=== PATIENT | male | born 1960 | race Caucasian/White ===

== ENCOUNTER → 2020-02-27 10:20 | Outpatient (CLI) | payer OTHER, SELFPAY ==
--- NOTE | 2020-02-27 10:48 | ECG_ITS ---
APPROVED REPORT Exam: Resting ECG HR:89 bpm ECG Measurements Heart Rate 89 AXES MN 172 P 41 QRSd 102 QRS 3 QT 378 T 64 QTc 459 Conclusion Normal sinus rhythm Left atrial abnormality Borderline ECG Electronically signed by : Tyler Nettles, 02/27/2020 21:07:02
[2020-02-27 11:21] LABS: Basophils # 0.1 K/mm3 (0-0.2); Basophils % 0.7 % (0.1-2.0); Eosinophils # 0.2 K/mm3 (0.0-0.4); Eosinophils % 2.6 % (0.1-12.0); Hematocrit 55.2 % (42.0-52.0); Lymphocytes # 2.2 K/mm3 (0.7-4.5); Lymphocytes % 26.8 % (10-50); Mean Corpuscular HGB Conc 32.7 g/dL (31.8-35.4); Mean Corpuscular Hemoglobin 30.9 pg (27.0-31.2); Mean Corpuscular Volume 94.4 fl (80-94); Mean Platelet Volume 8.5 fl (7.4-10.4); Monocytes # 0.9 K/mm3 (0.1-1.0); Monocytes % 10.7 % (1.7-9.3); Neutrophils # 4.8 K/mm3 (1.8-7.8); Neutrophils % 59.3 % (37.0-80.0); Platelet Count 318 K/mm3 (142-424); Red Blood Count 5.85 M/mm3 (4.60-6.20); White Blood Count 8.2 K/mm3 (4.8-10.8)
[2020-02-27 11:29] LABS: Hemoglobin 18.3 g/dL (14.1-18.0)
[2020-02-27 11:48] LABS: Alanine Aminotransferase 55 U/L (12-78); Albumin Level 4.6 g/dl (3.5-5.0); Albumin/Globulin Ratio 1.4 (1.1-1.8); Alkaline Phosphatase 92 U/L (38-126); Anion Gap 15.1 mEq/L (5-15); Aspartate Amino Transferase 48 U/L (17-59); Bilirubin,Total 0.7 mg/dl (0.2-1.3); Blood Urea Nitrogen 16 mg/dl (9-20); Calcium 9.6 mg/dl (8.4-10.2); Carbon Dioxide 28 mmol/L (22.0-30.0); Chloride 101 mmol/L (98-107); Estimated Glomerular Filt Rate 86 ml/min (>60); GFR (African American) 105 ML/MIN (>60); Globulin 3.4 g/dL (1.3-3.2); Glucose 132 mg/dl (74-100); Potassium 5.1 mmoL/L (3.5-5.1); Sodium 139 mmol/L (136-145)
== END ==
PROVIDERS: Visit Provider Orthopaedic Surgery
DX: Z01.818 Encounter for other preprocedural examination (principal); M25.512 Pain in left shoulder
CPT/HCPCS: 36415; 80053; 85025; 93005

== ENCOUNTER → 2020-04-18 14:32 | Outpatient (CLI) | payer OTHER, SELFPAY ==
[2020-04-18 14:48] LABS: Basophils # 0.1 K/mm3 (0-0.2); Basophils % 0.9 % (0.1-2.0); Eosinophils # 0.5 K/mm3 (0.0-0.4); Eosinophils % 5.4 % (0.1-12.0); Hematocrit 51.5 % (42.0-52.0); Hemoglobin 17.8 g/dL (14.1-18.0); Lymphocytes # 1.8 K/mm3 (0.7-4.5); Lymphocytes % 21.1 % (10-50); Mean Corpuscular HGB Conc 34.5 g/dL (31.8-35.4); Mean Corpuscular Hemoglobin 30.9 pg (27.0-31.2); Mean Corpuscular Volume 89.7 fl (80-94); Mean Platelet Volume 8.2 fl (7.4-10.4); Monocytes # 0.7 K/mm3 (0.1-1.0); Monocytes % 7.7 % (1.7-9.3); Neutrophils # 5.6 K/mm3 (1.8-7.8); Platelet Count 324 K/mm3 (142-424); Red Blood Count 5.74 M/mm3 (4.60-6.20); White Blood Count 8.6 K/mm3 (4.8-10.8)
[2020-04-18 15:46] LABS: Alanine Aminotransferase 75 U/L (12-78); Albumin Level 4.6 g/dl (3.5-5.0); Albumin/Globulin Ratio 1.4 (1.1-1.8); Alkaline Phosphatase 107 U/L (38-126); Anion Gap 14.1 mEq/L (5-15); Aspartate Amino Transferase 72 U/L (17-59); Bilirubin,Total 0.6 mg/dl (0.2-1.3); Blood Urea Nitrogen 14 mg/dl (9-20); Calcium 9.7 mg/dl (8.4-10.2); Carbon Dioxide 30 mmol/L (22.0-30.0); Chloride 97 mmol/L (98-107); Estimated Glomerular Filt Rate 86 ml/min (>60); GFR (African American) 105 ML/MIN (>60); Globulin 3.4 g/dL (1.3-3.2); Glucose 170 mg/dl (74-100); Potassium 5.1 mmoL/L (3.5-5.1); Sodium 136 mmol/L (136-145)
== END ==
PROVIDERS: Visit Provider Orthopaedic Surgery
DX: Z01.818 Encounter for other preprocedural examination (principal)
CPT/HCPCS: 36415; 80053; 85025

== ENCOUNTER 2020-12-03 14:00 | Outpatient (RCR) | payer OTHER, SELFPAY | END 2020-12-19 12:46 | disposition home or self-care (01) | LOC: PT.CARL 14:00 | PROVIDERS: Visit Provider Orthopaedic Surgery | DX: M75.102 Unspecified rotator cuff tear or rupture of left shoulder, not specified as traumatic (principal) | CPT/HCPCS: 97010; 97014; 97110; 97140; 97163; 97164; G0283 ==

== ENCOUNTER → 2021-10-09 13:24 | Outpatient (CLI) | payer SELFPAY | PROVIDERS: PCP Internal Medicine; Visit Provider Internal Medicine | DX: U07.1 COVID-19 (principal) | CPT/HCPCS: C9803; U0003; U0005 ==

== ENCOUNTER → 2021-11-12 16:50 | Outpatient (CLI) | payer OTHER, SELFPAY ==
[2021-11-12 18:13] LABS: Basophils # 0.1 K/mm3 (0-0.2); Basophils % 1.1 % (0.1-2.0); Eosinophils # 0.3 K/mm3 (0.0-0.4); Eosinophils % 3.5 % (0.1-12.0); Hematocrit 54.6 % (42.0-52.0); Hemoglobin 17.9 g/dL (14.1-18.0); Lymphocytes # 1.8 K/mm3 (0.7-4.5); Lymphocytes % 24.4 % (10-50); Mean Corpuscular HGB Conc 32.7 g/dL (31.8-35.4); Mean Corpuscular Hemoglobin 31.8 pg (27.0-31.2); Mean Corpuscular Volume 97.3 fl (80-94); Mean Platelet Volume 10.1 fl (7.4-10.4); Monocytes # 0.7 K/mm3 (0.1-1.0); Monocytes % 9.5 % (1.7-9.3); Neutrophils # 4.6 K/mm3 (1.8-7.8); Neutrophils % 61.5 % (37.0-80.0); Platelet Count 350 K/mm3 (142-424); Red Blood Count 5.61 M/mm3 (4.60-6.20); Red Cell Distribution Width 12.7 % (11.5-17.5); White Blood Count 7.5 K/mm3 (4.8-10.8)
[2021-11-12 18:30] LABS: Hemoglobin A1C 7.9 % (4.0-6.0)
[2021-11-12 19:00] LABS: Alanine Aminotransferase 49 U/L (12-78); Albumin Level 4.4 g/dl (3.5-5.0); Albumin/Globulin Ratio 1.2 (1.1-1.8); Alkaline Phosphatase 161 U/L (38-126); Anion Gap 15.8 mEq/L (5-15); Aspartate Amino Transferase 58 U/L (17-59); Bilirubin,Total 0.6 mg/dl (0.2-1.3); Blood Urea Nitrogen 16 mg/dl (9-20); Calcium 9.2 mg/dl (8.4-10.2); Carbon Dioxide 26 mmol/L (22.0-30.0); Chloride 99 mmol/L (98-107); Chol/HDL Ratio 8.1 (1-3.5); Cholesterol 317 mg/dl (140-200); Estimated Glomerular Filt Rate 98 ml/min (>60); GFR (African American) 119 ML/MIN (>60); Globulin 3.6 g/dL (1.3-3.2); Glucose 165 mg/dl (74-100); HDL Cholesterol 39 mg/dl (40-60); Potassium 4.8 mmoL/L (3.5-5.1); Sodium 136 mmol/L (136-145); Triglycerides 387 mg/dl (30-150); VLDL Cholesterol 77 mg/dL (0-40)
[2021-11-12 19:11] LABS: Direct LDL Cholesterol 166.48 mg/dL (100-129)
[2021-11-12 19:30] LABS: Prostate Specific Ag Screen 0.7 ng/ml (0.0-4.0)
== END ==
PROVIDERS: PCP Internal Medicine; Visit Provider Internal Medicine
DX: E11.9 Type 2 diabetes mellitus without complications (principal); I10 Essential (primary) hypertension; E78.5 Hyperlipidemia, unspecified; K57.30 Diverticulosis of large intestine without perforation or abscess without bleeding; Z12.5 Encounter for screening for malignant neoplasm of prostate
CPT/HCPCS: 80053; 80061; 83036; 85025; G0103

== ENCOUNTER → 2022-05-19 12:09 | Outpatient (CLI) | payer OTHER, SELFPAY ==
[2022-05-19 13:39] LABS: Alanine Aminotransferase 65 U/L (12-78); Albumin Level 4.5 g/dl (3.5-5.0); Albumin/Globulin Ratio 1.4 (1.1-1.8); Alkaline Phosphatase 77 U/L (38-126); Anion Gap 13.8 mEq/L (5-15); Aspartate Amino Transferase 45 U/L (17-59); Bilirubin,Total 0.5 mg/dl (0.2-1.3); Blood Urea Nitrogen 16 mg/dl (9-20); Calcium 8.8 mg/dl (8.4-10.2); Carbon Dioxide 27 mmol/L (22.0-30.0); Chloride 100 mmol/L (98-107); Chol/HDL Ratio 8.6 (1-3.5); Cholesterol 308 mg/dl (140-200); Estimated Glomerular Filt Rate 98 ml/min (>60); GFR (African American) 119 ML/MIN (>60); Globulin 3.2 g/dL (1.3-3.2); Glucose 135 mg/dl (74-100); HDL Cholesterol 36 mg/dl (40-60); Potassium 4.8 mmoL/L (3.5-5.1); Sodium 136 mmol/L (136-145); Total Protein,Serum 7.7 g/dl (6.3-8.2)
[2022-05-19 13:42] LABS: Hemoglobin A1C 7.8 % (4.0-6.0)
[2022-05-19 13:47] LABS: Triglycerides 580 mg/dl (30-150)
[2022-05-19 14:58] LABS: Microalbumin/Creatinine Ratio 39.2
[2022-05-19 15:12] LABS: Creatinine,Urine Random 69 mg/dL (Not Estab.)
== END ==
PROVIDERS: PCP Internal Medicine; Visit Provider Internal Medicine
DX: I10 Essential (primary) hypertension (principal); E11.9 Type 2 diabetes mellitus without complications; E78.5 Hyperlipidemia, unspecified; K57.30 Diverticulosis of large intestine without perforation or abscess without bleeding
CPT/HCPCS: 80053; 80061; 82043; 82570; 83036

== ENCOUNTER → 2022-07-02 16:25 | Outpatient (CLI) | payer OTHER, SELFPAY | PROVIDERS: PCP Internal Medicine; Visit Provider Internal Medicine | DX: J02.9 Acute pharyngitis, unspecified (principal) | CPT/HCPCS: 87070 ==

== ENCOUNTER → 2022-07-03 13:06 | Outpatient (CLI) | payer OTHER, SELFPAY ==
--- NOTE | 2022-07-03 13:29 | XR_ITS ---
FINAL REPORT CLINICAL HISTORY: HIP PAIN right hip pain FINDINGS: RIGHT HIP Two views of the right hip demonstrate no acute fracture or dislocation. The joint spaces appear normal. The visualized bony structures are well aligned. No soft tissue abnormality is seen. IMPRESSION: No acute bony abnormality. Reviewed, Interpreted and Dictated by Yariel Mireles MD Transcribed by Bettina Greenberg Authenticated and [facility]
--- NOTE | 2022-07-03 13:29 | XR_ITS ---
FINAL REPORT CLINICAL HISTORY: left hip pain FINDINGS: LEFT HIP Two views of the left hip including an AP pelvis demonstrate no acute fracture or dislocation. The joint spaces appear normal. The visualized bony structures are well aligned. No soft tissue abnormality is seen. IMPRESSION: No acute bony abnormality. Reviewed, Interpreted and Dictated by Yariel Mireles MD Transcribed by Bettina Greenberg Authenticated and [facility]
== END ==
PROVIDERS: PCP Internal Medicine; Visit Provider Internal Medicine
DX: M25.551 Pain in right hip (principal); M25.552 Pain in left hip
CPT/HCPCS: 73502

== ENCOUNTER → 2022-07-09 12:33 | Outpatient (CLI) | payer OTHER, SELFPAY ==
--- NOTE | 2022-07-09 12:52 | US_ITS ---
FINAL REPORT CLINICAL HISTORY: HTN, Hyperlipidemia, bilateral hip pain and burning, bilateral claudication. FINDINGS: COMPLETE ANKLE/BRACHIAL INDICES BILATERAL Complete ankle brachial indices were obtained. The right AMARIS is 1.2. The left AMARIS is 1.1. IMPRESSION: ABIs are within normal limits bilaterally. Reviewed, Interpreted and Dictated by Audrey Weldon MD Transcribed by Ilene Colindres Authenticated and [facility]
== END ==
PROVIDERS: PCP Internal Medicine; Visit Provider Internal Medicine
DX: M25.551 Pain in right hip (principal); M25.552 Pain in left hip; M79.604 Pain in right leg; M79.605 Pain in left leg
CPT/HCPCS: 93923

== ENCOUNTER → 2022-07-15 15:07 | Outpatient (CLI) | payer OTHER, SELFPAY ==
--- NOTE | 2022-07-15 15:15 | XR_ITS ---
FINAL REPORT CLINICAL HISTORY: R/O METAL FOREIGN BODY FOR MRI FINDINGS: ORBITS Look up and look down views were obtained. No fracture is identified. The sinuses are clear. No foreign body is identified. IMPRESSION: No acute process. Reviewed, Interpreted and Dictated by Yariel Mireles MD Transcribed by Russ Garrido Authenticated and [facility]
--- NOTE | 2022-07-15 15:46 | MR_ITS ---
PROCEDURE INFORMATION: Exam: MR Lumbar Spine Without Contrast Exam date and time: 07/15/2022 3:48 PM Age: 61 years old Clinical indication: Low back pain TECHNIQUE: Imaging protocol: Magnetic resonance imaging of the lumbar spine without contrast. COMPARISON: CR XR HIP LT 2-3V W/PELVIS 07/03/2022 1:31 PM FINDINGS: Bones/joints: L5-S1 bilateral spondylolysis with 5 mm of anterolisthesis is present. There is a small interosseous hemangioma present in the L1 vertebrae inferiorly and the superior endplate of L2. There is no acute displaced fracture seen. Disc space height loss with vacuum cleft L5-S1. Schmorl's nodes are seen in T12-L3 with mild chronic appearing loss of height. Spinal cord: Visualized cord, conus medullaris and cauda equina are unremarkable without compression. L1-L2: L1-L2 subtle saddle shaped disc bulging is present without stenosis. L2-L3: L2-L3 subtle saddle shaped disc bulging is seen without stenosis. L3-L4: L3-L4 minimal diffuse disc bulging with degenerative hypertrophy of the facets is seen with mild narrowing of the spinal canal and moderate narrowing of both neural foramen. L4-L5: L4-L5 minimal bilateral facet arthritis is seen without stenosis. L5-S1: L5-S1 diffuse disc bulging is seen slightly eccentric to the left. There is no stenosis of the spinal canal. There is degenerative hypertrophy of the facets on both sides with moderate right and severe left neural foraminal narrowing. There is also a small left facet effusion present. Soft tissues: Unremarkable. IMPRESSION: Multilevel degenerative disc disease with mild spinal canal stenosis L3-L4 as described. There is also severe left L5-S1 neural foraminal stenosis present.
== END ==
PROVIDERS: PCP Internal Medicine; Visit Provider Internal Medicine
DX: M54.2 Cervicalgia (principal); M54.50 Low back pain, unspecified; M79.604 Pain in right leg; M79.605 Pain in left leg
CPT/HCPCS: 70200; 72148; 76376

== ENCOUNTER → 2022-08-18 12:30 | Outpatient (CLI) | payer OTHER, SELFPAY ==
[2022-08-18 15:26] LABS: Hemoglobin A1C 6.4 % (4.0-6.0)
[2022-08-18 15:28] LABS: Creatinine,Urine Random 78 mg/dL (Not Estab.)
[2022-08-18 15:33] LABS: Microalbumin/Creatinine Ratio 61.5
[2022-08-18 15:44] LABS: Alanine Aminotransferase 56 U/L (12-78); Albumin Level 4.5 g/dl (3.5-5.0); Albumin/Globulin Ratio 1.5 (1.1-1.8); Alkaline Phosphatase 92 U/L (38-126); Anion Gap 21.6 mEq/L (5-15); Aspartate Amino Transferase 47 U/L (17-59); Bilirubin,Total 0.5 mg/dl (0.2-1.3); Blood Urea Nitrogen 25 mg/dl (9-20); Carbon Dioxide 25 mmol/L (22.0-30.0); Chloride 93 mmol/L (98-107); Chol/HDL Ratio 7.4 (1-3.5); Cholesterol 229 mg/dl (140-200); Estimated Glomerular Filt Rate 86 ml/min (>60); GFR (African American) 104 ML/MIN (>60); Globulin 3.1 g/dL (1.3-3.2); Glucose 112 mg/dl (74-100); HDL Cholesterol 31 mg/dl (40-60); Potassium 4.6 mmoL/L (3.5-5.1); Sodium 135 mmol/L (136-145); Total Protein,Serum 7.6 g/dl (6.3-8.2)
[2022-08-18 15:53] LABS: Triglycerides 760 mg/dl (30-150)
[2022-08-18 15:55] LABS: Direct LDL Cholesterol 83.18 mg/dL (100-129)
== END ==
PROVIDERS: PCP Internal Medicine; Visit Provider Internal Medicine
DX: E11.9 Type 2 diabetes mellitus without complications (principal); E78.5 Hyperlipidemia, unspecified; I10 Essential (primary) hypertension; K57.30 Diverticulosis of large intestine without perforation or abscess without bleeding
CPT/HCPCS: 80053; 80061; 82043; 82570; 83036

== ENCOUNTER → 2022-09-05 09:01 | Outpatient (POV) | payer OTHER, SELFPAY ==
[2022-09-05 09:41] VITALS: BP 148/89; PULSE 94; RESP 18; O2SAT 97; BMI 35.1
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
== END ==
PROVIDERS: PCP Internal Medicine; Visit Provider Nurse Anesthetist, Certified Registered
DX: M51.16 Intervertebral disc disorders with radiculopathy, lumbar region (principal); M47.26 Other spondylosis with radiculopathy, lumbar region; Z79.899 Other long term (current) drug therapy
CPT/HCPCS: 99202; G0463

== ENCOUNTER → 2022-09-15 14:02 | Outpatient (CLI) | payer OTHER, SELFPAY ==
--- NOTE | 2022-09-15 14:09 | CT_ITS ---
FINAL REPORT TECHNIQUE: Axial imaging of the head was obtained without contrast. This study was performed with techniques to keep radiation doses as low as reasonably achievable, (ALARA). Individualized dose reduction techniques using automated exposure control or adjustment of mA and/or kV according to the patient''s size were employed. CLINICAL HISTORY: HEADACHES,VERTIGO,DIZZINESS FINDINGS: The ventricles are normal in size. There is no evidence of hemorrhage. No masses are identified. No extra-axial fluid is seen. There is mucoperiosteal thickening of the bilateral maxillary sinuses. Air-fluid level is seen in the sphenoid sinus. There is no acute osseous abnormality. IMPRESSION: No acute intracranial abnormality. Sinusitis as above. Reviewed, Interpreted and Dictated by Audrey Weldon MD Transcribed by Jocelyn Herrmann Authenticated and [facility]
== END ==
PROVIDERS: PCP Internal Medicine; Visit Provider Internal Medicine
DX: R51.9 Headache, unspecified (principal); R55 Syncope and collapse; R42 Dizziness and giddiness
CPT/HCPCS: 70450

== ENCOUNTER → 2022-09-29 10:21 | Outpatient (POV) | payer OTHER, SELFPAY ==
--- NOTE | 2022-09-29 10:58 | EXP.PAIN.SOA ---
[facility] Pain Management SOAP Note Subjective:: Patient is a pleasant 62-year-old male who presents today for follow-up. We are currently treating the patient for degenerative disc disease of lumbar spine with lumbar radiculopathy symptoms. Today he states his pain is a 1 out of 10. Patient denies any new trauma or injury. Patient was scheduled for a lumbar epidural steroid injection however he is currently on blood thinner and that his primary care doctor who is prescribing this medication states that he is at least going to be on this medication for 3 months. Patient states he did recently have right shoulder surgery on August 20 and fairly shortly after that he had a blood clot and was prescribed the blood thinner. Patient denies any specific cardiac history prior or previous blood clots. He does state his pain is still in his low back and describes it as an aching, throbbing sensation that is worse with increased activity. Patient states that with prolonged walking and standing the pain is worsened and interferes with his ability to perform activities of daily living such as cooking and cleaning. Patient states he frequently cannot go to the grocery store without having to take multiple breaks due to the worsening pain. Patient also states that he typically has to lean over at the shopping cart or even lean while doing the dishes to have some additional improvement. Patient is not on any scheduled medications. His Howard is [phone]. Its been reviewed and appropriate. Review of Systems: General: No recent weight changes, no fever, no sleep disturbances Respiratory: No cough, no shortness of air, no recurring pulmonary infections Cardiovascular/peripheral vascular: No chest pain, no palpitations, no edema, no shortness of breath Gastrointestinal: No new onset incontinence, normal bowel movements reported Genitourinary: No new onset incontinence Musculoskeletal: Low back pain Psychiatric: [Normal mood/affect] Neurological: [Denies weakness in extremities], [denies balance issues] Objective:: Physical Exam: General: Alert and oriented x3, no acute distress, pleasant and cooperative Lungs: Respirations even and unlabored, symmetrical chest expansion Eyes: PERRL Musculoskeletal: Flexion and extension of lumbar [spine] somewhat guarded secondary to pain, [antalgic gait noted] Neurological: Speech clear, no gross sensory deficit COMPARISON: CR XR HIP LT 2-3V W/PELVIS 07/03/2022 1:31 PM FINDINGS: Bones/joints: L5-S1 bilateral spondylolysis with 5 mm of anterolisthesis is present. There is a small interosseous hemangioma present in the L1 vertebrae inferiorly and the superior endplate of L2. There is no acute displaced fracture seen. Disc space height loss with vacuum cleft L5-S1. Schmorl's nodes are seen in T12-L3 with mild chronic appearing loss of height. Spinal cord: Visualized cord, conus medullaris and cauda equina are unremarkable without compression. L1-L2: L1-L2 subtle saddle shaped disc bulging is present without stenosis. L2-L3: L2-L3 subtle saddle shaped disc bulging is seen without stenosis. L3-L4: L3-L4 minimal diffuse disc bulging with degenerative hypertrophy of the facets is seen with mild narrowing of the spinal canal and moderate narrowing of both neural foramen. L4-L5: L4-L5 minimal bilateral facet arthritis is seen without stenosis. L5-S1: L5-S1 diffuse disc bulging is seen slightly eccentric to the left. There is no stenosis of the spinal canal. There is degenerative hypertrophy of the facets on both sides with moderate right and severe left neural foraminal narrowing. There is also a small left facet effusion present. Soft tissues: Unremarkable. IMPRESSION: Multilevel degenerative disc disease with mild spinal canal stenosis L3-L4 as described. There is also severe left L5-S1 neural foraminal stenosis present. Assessment:: Degenerative disc disease of sheryl
[2022-09-29 11:07] VITALS: BP 147/86; PULSE 90; RESP 18; BMI 35.7
== END ==
PROVIDERS: PCP Internal Medicine; Visit Provider Nurse Practitioner Family
DX: M51.16 Intervertebral disc disorders with radiculopathy, lumbar region (principal); M48.00 Spinal stenosis, site unspecified
CPT/HCPCS: 99212; G0463

== ENCOUNTER 2022-11-01 18:54 | Emergency (ER) | payer OTHER, SELFPAY ==
[2022-11-01 18:56] VITALS: BP 158/82; PULSE 100; RESP 18; TEMP 36.7; O2SAT 95; BMI 35.1
--- NOTE | 2022-11-01 19:26 | XR_ITS ---
PROCEDURE INFORMATION: Exam: XR Left Hand Exam date and time: 11/01/2022 7:22 PM Age: 62 years old Clinical indication: Pain; Finger(s); Left; Additional info: Pain mcp middle and ring finger TECHNIQUE: Imaging protocol: Radiologic exam of the left hand. Views: 3 or more views. COMPARISON: No relevant prior studies available. FINDINGS: Bones/joints: No acute fracture or dislocation. Mild arthritic changes scattered throughout the hand, involving the 1st MCP joint with minimal periarticular spurs, 4th MCP joint with minimal subcortical cystic changes in the 4th metacarpal head, IP joint of the thumb with small periarticular spurs, 2nd and 3rd PIP joints, 2nd through 5th D IP joints with some periarticular spurs, subcortical cystic changes or small marginal erosions. Alignment appears normal. Soft tissues: Soft tissue swelling. No radiopaque foreign bodies. No pathologic soft tissue calcification. IMPRESSION: 1. No acute fracture or dislocation. 2. Scattered mild arthritic changes through the digits as detailed above, with some small periarticular spurs, tiny subcortical cystic changes or erosions. This may be degenerative osteoarthritis but other erosive arthropathies would also be considered.
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
[2022-11-01 20:00] VITALS: BP 151/72; PULSE 89; RESP 18; TEMP 36.7; O2SAT 95
== END 2022-11-01 20:01 | disposition home or self-care (01) ==
PROVIDERS: Emergency Provider Emergency Medicine; PCP Internal Medicine
DX: I10 Essential (primary) hypertension (principal); S69.92XA Unspecified injury of left wrist, hand and finger(s), initial encounter; E78.5 Hyperlipidemia, unspecified
CPT/HCPCS: 73130; 99283

== ENCOUNTER → 2022-12-17 15:38 | Outpatient (CLI) | payer OTHER, SELFPAY ==
[2022-12-17 15:49] LABS: MANUAL DIFFERENTIAL MANUAL DIFFERENTIAL (MANUAL DIFF)
[2022-12-17 17:40] LABS: Basophils % 0.4 % (0.1-2.0); Eosinophils # 0.7 K/mm3 (0.0-0.4); Eosinophils % 7.8 % (0.1-12.0); Hematocrit 47.9 % (42.0-52.0); Hemoglobin 16.3 g/dL (14.1-18.0); Lymphocytes # 2.1 K/mm3 (0.7-4.5); Lymphocytes % 23.5 % (10-50); Mean Corpuscular Hemoglobin 31.3 pg (27.0-31.2); Mean Platelet Volume 9.1 fl (7.4-10.4); Monocytes % 11.4 % (1.7-9.3); Neutrophils % 56.8 % (37.0-80.0); Platelet Count 384 K/mm3 (142-424); Red Blood Count 5.21 M/mm3 (4.60-6.20); Red Cell Distribution Width 13.6 % (11.5-17.5); White Blood Count 8.8 K/mm3 (4.8-10.8)
[2022-12-17 19:17] LABS: Vitamin B12 471 pg/mL (239-931)
[2022-12-17 19:35] LABS: Folate > 20.00 ng/mL
[2022-12-17 21:01] LABS: Eosinophils % 3 % (0-3); Lymphocytes % 29 % (10-50); Monocytes % 4 % (2-9); Neutrophils % 64 % (42-76); RBC Morphology Normal; Total Cells Counted 100
[2022-12-17 21:02] LABS: Platelet Estimate Normal
== END ==
PROVIDERS: PCP Internal Medicine; Visit Provider Specialist
DX: R42 Dizziness and giddiness (principal); D75.1 Secondary polycythemia; J32.0 Chronic maxillary sinusitis; J32.3 Chronic sphenoidal sinusitis; I26.99 Other pulmonary embolism without acute cor pulmonale
CPT/HCPCS: 36415; 82607; 82746; 84443; 85007; 85014; 85018; 85048; 85049

== ENCOUNTER → 2022-12-30 10:08 | Outpatient (CLI) | payer OTHER, SELFPAY ==
[2022-12-30 10:18] LABS: MANUAL DIFFERENTIAL MANUAL DIFFERENTIAL (MANUAL DIFF)
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
[2022-12-30 10:39] LABS: Basophils # 0.1 K/mm3 (0-0.2); Basophils % 0.9 % (0.1-2.0); Eosinophils # 0.8 K/mm3 (0.0-0.4); Eosinophils % 10.9 % (0.1-12.0); Hemoglobin 16.1 g/dL (14.1-18.0); Lymphocytes # 1.7 K/mm3 (0.7-4.5); Lymphocytes % 23.5 % (10-50); Mean Corpuscular HGB Conc 32.8 g/dL (31.8-35.4); Mean Corpuscular Hemoglobin 30.5 pg (27.0-31.2); Mean Corpuscular Volume 93.1 fl (80-94); Mean Platelet Volume 8.2 fl (7.4-10.4); Monocytes # 0.7 K/mm3 (0.1-1.0); Monocytes % 9.4 % (1.7-9.3); Neutrophils # 3.9 K/mm3 (1.8-7.8); Neutrophils % 55.3 % (37.0-80.0); Platelet Count 343 K/mm3 (142-424); Red Blood Count 5.27 M/mm3 (4.60-6.20); Red Cell Distribution Width 13.9 % (11.5-17.5); White Blood Count 7.1 K/mm3 (4.8-10.8)
[2022-12-30 10:57] LABS: Chloride 99 mmol/L (98-107); Potassium 4.7 mmoL/L (3.5-5.1); Sodium 134 mmol/L (136-145)
[2022-12-30 11:08] LABS: Alanine Aminotransferase 44 U/L (12-78); Albumin/Globulin Ratio 1.3 (1.1-1.8); Alkaline Phosphatase 100 U/L (38-126); Anion Gap 15.7 mEq/L (5-15); Aspartate Amino Transferase 37 U/L (17-59); Bilirubin,Total 0.4 mg/dl (0.2-1.3); Blood Urea Nitrogen 18 mg/dl (9-20); Calcium 8.9 mg/dl (8.4-10.2); Carbon Dioxide 24 mmol/L (22.0-30.0); Estimated Glomerular Filt Rate 86 ml/min (>60); GFR (African American) 103 ML/MIN (>60); Globulin 3.2 g/dL (1.3-3.2); Glucose 213 mg/dl (74-100); Total Protein,Serum 7.2 g/dl (6.3-8.2)
[2022-12-30 11:24] LABS: Eosinophils % 8 % (0-3); Lymphocytes % 29 % (10-50); Monocytes % 8 % (2-9); Neutrophils % 52 % (42-76); Platelet Estimate Normal; RBC Morphology Normal; Total Cells Counted 100
[2022-12-30 12:08] LABS: Thyroid Stimulating Hormone 1.88 uIU/mL (0.465-4.68)
[2022-12-30 12:13] LABS: Vitamin B12 397 pg/mL (239-931)
== END ==
LOC: RAD 10:09
PROVIDERS: PCP Internal Medicine; Visit Provider Specialist
DX: R42 Dizziness and giddiness (principal); D75.1 Secondary polycythemia
CPT/HCPCS: 36415; 70553; 80053; 82607; 82746; 84443; 85007; 85014; 85018; 85048; 85049; A9576

== ENCOUNTER 2023-01-01 13:00 | Outpatient (RCR) | payer OTHER, SELFPAY | END 2023-01-07 07:47 | disposition home or self-care (01) | LOC: PT 13:00 | PROVIDERS: PCP Internal Medicine; Visit Provider Physician Assistant Surgical | DX: M75.101 Unspecified rotator cuff tear or rupture of right shoulder, not specified as traumatic (principal); Z98.890 Other specified postprocedural states | CPT/HCPCS: 97010; 97014; 97110; 97112; 97140; 97163; 97164; 97530; G0283 ==

== ENCOUNTER 2023-01-29 13:02 | Outpatient (RCR) | payer OTHER, SELFPAY ==
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
== END 2023-03-09 15:20 | disposition home or self-care (01) ==
LOC: PT 13:02
PROVIDERS: PCP Internal Medicine; Visit Provider Specialist
DX: R42 Dizziness and giddiness (principal)
CPT/HCPCS: 97163

== ENCOUNTER → 2023-01-30 14:33 | Outpatient (CLI) | payer OTHER, SELFPAY ==
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
== END ==
PROVIDERS: PCP Internal Medicine; Visit Provider Orthopaedic Surgery
DX: M25.511 Pain in right shoulder (principal)
CPT/HCPCS: 73221

== ENCOUNTER → 2023-02-18 16:39 | Outpatient (CLI) | payer OTHER, SELFPAY ==
[2023-02-18 18:52] LABS: Basophils % 0.4 % (0.1-2.0); Eosinophils # 0.4 K/mm3 (0.0-0.4); Eosinophils % 5.7 % (0.1-12.0); Hematocrit 48.1 % (42.0-52.0); Hemoglobin 16.5 g/dL (14.1-18.0); Lymphocytes # 2.2 K/mm3 (0.7-4.5); Lymphocytes % 28.7 % (10-50); Mean Corpuscular HGB Conc 34.4 g/dL (31.8-35.4); Mean Corpuscular Hemoglobin 32.4 pg (27.0-31.2); Mean Corpuscular Volume 94.4 fl (80-94); Mean Platelet Volume 9.7 fl (7.4-10.4); Monocytes # 0.9 K/mm3 (0.1-1.0); Monocytes % 11.4 % (1.7-9.3); Neutrophils % 53.8 % (37.0-80.0); Platelet Count 333 K/mm3 (142-424); Red Cell Distribution Width 12.9 % (11.5-17.5); White Blood Count 7.5 K/mm3 (4.8-10.8)
[2023-02-18 19:33] LABS: Alanine Aminotransferase 47 U/L (12-78); Albumin Level 4.8 g/dl (3.5-5.0); Albumin/Globulin Ratio 1.5 (1.1-1.8); Alkaline Phosphatase 81 U/L (38-126); Anion Gap 19.5 mEq/L (5-15); Aspartate Amino Transferase 40 U/L (17-59); Bilirubin,Total 0.6 mg/dl (0.2-1.3); Blood Urea Nitrogen 21 mg/dl (9-20); Calcium 9.7 mg/dl (8.4-10.2); Carbon Dioxide 26 mmol/L (22.0-30.0); Chloride 95 mmol/L (98-107); Chol/HDL Ratio 5.5 (1-3.5); Cholesterol 231 mg/dl (140-200); Estimated Glomerular Filt Rate 61 ml/min (>60); GFR (African American) 74 ML/MIN (>60); Globulin 3.3 g/dL (1.3-3.2); Glucose 142 mg/dl (74-100); HDL Cholesterol 42 mg/dl (40-60); Potassium 5.5 mmoL/L (3.5-5.1); Sodium 135 mmol/L (136-145); Total Protein,Serum 8.1 g/dl (6.3-8.2); Triglycerides 269 mg/dl (30-150); VLDL Cholesterol 54 mg/dL (0-40)
[2023-02-18 19:48] LABS: Direct LDL Cholesterol 118.75 mg/dL (100-129)
[2023-02-18 20:01] LABS: Prostate Specific Ag Screen 0.8 ng/ml (0.0-4.0)
[2023-02-18 20:13] LABS: Hemoglobin A1C 6.7 % (4.0-6.0)
== END ==
PROVIDERS: PCP Internal Medicine; Visit Provider Internal Medicine
DX: E11.9 Type 2 diabetes mellitus without complications (principal); I10 Essential (primary) hypertension; E78.5 Hyperlipidemia, unspecified; K57.30 Diverticulosis of large intestine without perforation or abscess without bleeding; Z12.5 Encounter for screening for malignant neoplasm of prostate; Z79.84 Long term (current) use of oral hypoglycemic drugs
CPT/HCPCS: 80053; 80061; 83036; 85025; G0103

== ENCOUNTER 2023-07-06 13:53 | Outpatient (CLI) | payer OTHER, SELFPAY ==
--- NOTE | 2023-07-06 13:58 | XR_ITS ---
FINAL REPORT CLINICAL HISTORY: Foot Pain, hammer toe left foot. weight bearing views. FINDINGS: LEFT FOOT Three views of the left foot demonstrate no acute fracture or dislocation. The visualized joint spaces are normally aligned. There is hallux valgus deformity. There are degenerative changes of the first MTP joint. There is hammertoe deformity of the second toe. The soft tissues are unremarkable. IMPRESSION: Degenerative changes without acute bony abnormality. Reviewed, Interpreted and Dictated by Audrey Weldon MD Transcribed by Jocelyn Herrmann Authenticated and [facility]
--- NOTE | 2023-07-06 13:58 | XR_ITS ---
FINAL REPORT CLINICAL HISTORY: Foot Pain, weightbearing views. FINDINGS: RIGHT FOOT 3 views of the right foot were obtained. There is no acute fracture or dislocation. There is mild degenerative joint disease. There is degenerative change at the first MTP joint with hallux valgus deformity noted. There is mild soft tissue edema of the lateral forefoot soft tissues. IMPRESSION: Degenerative changes with lateral soft tissue edema. No acute bony abnormality. Reviewed, Interpreted and Dictated by Audrey Weldon MD Transcribed by Jocelyn Herrmann Authenticated and [facility]
== END 2023-07-06 23:59 ==
LOC: RAD 13:55
PROVIDERS: PCP Internal Medicine; Visit Provider Podiatrist
DX: M79.671 Pain in right foot (principal); M79.672 Pain in left foot
CPT/HCPCS: 73630

== ENCOUNTER 2023-08-24 17:51 | Outpatient (CLI) | payer OTHER, SELFPAY ==
--- OUTSIDE RECORDS SUMMARY | 2023-08-24 17:54 | XMS_ITS ---
Care Plan - [facility], [facility] Created on: August 24, 2023 John Reddy : 1960 Sex: Male Author Name Unknown Address [address] [place] [address] [place] [address] Phone Organization [facility] Address [address] [address] Phone Care Team Providers Care [employer] Operator Helper Name Role Phone Patrizia CERDA, Kelechi Unavailable [phone] MURIEL CERDA, SULY Beverly Primary Care Provider [phone]
--- OUTSIDE RECORDS SUMMARY | 2023-08-24 17:54 | XMS_ITS ---
Author Name Unknown Address [address] [place] [address] Phone Organization [facility] Address [address] [place] [address] Phone Care Team Providers Care Wrapper Sizer Name Role Phone Patrizia CERDA, Kelechi Unavailable [phone] MURIEL CERDA, SULY Beverly Primary Care Provider [phone] Reason for Referral Date Encounter Description Provider Reason for Referral 10/15/21 Follow Up Kelechi Acharya MD Referral To Physician 10/10/21 NEW PROBLEM/EST PT Kelechi Acharya MD Referr al To Physician 05/21/21 Follow Up Kelecih Acharya MD Referral To Physician - see pcp for bp 03/21/21 WC FOLLOW UP/EST Kelecih Acharya MD Referral To Physician - see pcp for bp 02/05/21 WC FOLLOW UP/EST Kelechi Acharya MD Referral To Physician - see pcp for bp 10/25/20 WC FOLLOW UP/EST Kelechi Acharya MD Referral To Physician - for elevated blood pressure for weight 09/19/20 WC FOLLOW UP/EST Kelechi Acharya MD Referral To Physician - for elevated blood pressure for weight 08/09/20 WC FOLLOW UP/EST Kelechi Acharya MD Referral To Physician - for elevated blood pressure for weight 07/03/20 WC POST OP Kelechi Acharya MD Referral To Physician - for elevated blood pressure for weight 06/05/20 Post Op Kelechi Acharya MD Referral To Physician - for elevated blood pressure for weight 05/17/20 WC POST OP Kelechi Acharya MD Referral To Physician - for elevated blood pressure for weight 05/07/20 Post Op Kelechi Acharya MD Referral To Physician - See pcp for bp 01/17/20 WC NEW PATIENT Kelechi Acharya MD Referral T o Physician - See pcp for bp Problems Includes: Active, inactive, and resolved Problems All Visits Onset Date Resolved Date Provider Condition S tatus Neck Pain 10/10/2021 Kelechi Acharya MD Active Last Documented On 2 2:11PM ; [facility] Joint Pain, Localized in the Right Shoulder 10/10/2021 Kelechi Acharya MD Active Last Documented On 2 2:04PM ; [facility] Joint Pain, Localized in the Left Shoulder 01/17/2020 Kelechi Acharya MD Active Last Documented On 0 1:15PM ; [facility] Plan of Treatment Pending Tests Order Diagnosis Results Due Ordering P rovider Radiology - CT Scan Shoulder 10/24/21 Gosia Acharya MD Last Documented On 2 9:32AM ; [facility] Radiology - MRI MRI Shoulder 10/24/21 Kelechi Acharya MD Last Documented On 2 9:32AM ; [facility] Radiology - MRI MRI Shoulder Pain in left shoulder 3 Kelechi Acharya MD Last Documented On 3 2:40PM ; [facility] Radiology - MRI MRI Shoulder Pain in right shoulder Kelechi Acharya MD Last Documented On 3 12:05PM ; [facility] Future Appointments Date Time Location Provi latasha Follow Up 09/10/2023 11:[facility] Ez Ramirez PA-C Last Documented On 4 4:45PM ; [facility] Instructions to patient Lose weight Last Documented On 4 1:36PM ; [facility] Lose weight Last Documented On 4 11:49AM ; [facility] Lose weight Last Documented On 4 11:12AM ; [facility] Lose weight Last Documented On 3 3:16PM ; [facility] Lose weight Last Documented On 3 10:05AM ; [facility] Lose weight Last Documented On 3 12:51PM ; [facility] Lose weight Last Documented On 3 1:35PM ; [facility] Lose weight Last Documented On 3 9:31AM ; [facility] Lose weight Last Documented On 3 10:07AM ; [facility] Lose weight Last Documented On 2 12:57PM ; [facility] Lose weight Last Documented On 2 2:12PM ; [facility] Lose weight Last Documented On 2 2:55PM ; [facility] Lose weight Last Documented On 1 1:24PM ; [facility] Lose weight Last Documented On 1 1:52PM ; [facility] Lose weight Last Documented On 1 3:06PM ; [facility] Lose weight Last Documented On 1 1:41PM ; [facility] Lose weight Last Documented On 1 1:05PM ; [facility] Lose weight Last Documented On 1 2:02PM ; [facility] Lose weight Last Documented On 1 1:10PM ; [facility] Lose weight Last Documented On 1 1:05PM ; [facility] Lose weight Last Documented On 1 1:21PM ; [facility] Lose weight Last Documented On 1 1:33PM ; [facility] Lose weight Last Documented On 0 1:46PM ; [facility] Assessments Includes: Assessments for all patient encounters Findings Encounter Date Overweight Post Op with Cheslee Malik Bloyd PA-C 07/02/2023 Last Documented On 4 1:55PM ; [facility] Overweight Post Op with Cheslee Malik Bloyd PA-C 06/19/2023 Last Documented On 4 12:35PM ; [facility] Overweight Post Op with Cheslee Malik Bloyd PA-C 06/12/2023 Last Documented On 4 11:18AM ; [facility] Overweight Follow Up with Kelechi Acharya MD 1 04/25/2022 Last Documented On 3 10:40AM ; [facility] Overweight Follow Up with Kelechi Acharya MD 0 01/08/2023 Last Documented On 3 12:05PM ; [facility] Overweight Follow Up with Kelechi Acharya MD 0 11/20/2022 Last Documented On 3 1:09PM ; [facility] No diagnosis of underweight Follow Up with Gosia Acharya MD 10/15/2021 Last Documented On 2 11:55AM ; [facility] Instructions Includes: Instructions for all patient encounters Instructions to patient Lose weight Last Documented On 4 1:36PM ; [facility] Lose weight Last Documented On 4 11:49AM ; [facility] Lose weight Last Documented On 4 11:12AM ; [facility] Lose weight Last Documented On 3 3:16PM ; [facility] Lose weight Last Documented On 3 10:05AM ; [facility] Lose weight Last Documented On 3 12:51PM ; [facility] Lose weight Last Documented On 3 1:35PM ; [facility] Lose weight Last Documented On 3 9:31AM ; [facility] Lose weight Last Documented On 3 10:07AM ; [facility] Lose weight Last Documented On 2 12:57PM ; [facility] Lose weight Last Documented On 2 2:12PM ; [facility] Lose weight Last Documented On 2 2:55PM ; [facility] Lose weight Last Documented On 1 1:24PM ; [facility] Lose weight Last Documented On 1 1:52PM ; [facility] Lose weight Last Documented On 1 3:06PM ; [facility] Lose weight Last Documented On 1 1:41PM ; [facility] Lose weight Last Documented On 1 1:05PM ; [facility] Lose weight Last Documented On 1 2:02PM ; [facility] Lose weight Last Documented On 1 1:10PM ; [facility] Lose weight Last Documented On 1 1:05PM ; [facility] Lose weight Last Documented On 1 1:21PM ; [facility] Lose weight Last Documented On 1 1:33PM ; [facility] Lose weight Last Documented On 0 1:46PM ; [facility] Medical Equipment - Implanted Devices Includes: Current and historical Devices No Medical Equipment Recorded Medications Includes: Current and historical Medications Current Medications (continue as prescribed) Eliquis 5 MG Oral Tablet 03/06/2023 Provider: PHYLLIS LLAMAS MD Diagnosis: Last Documented On 4 9:39AM By Sandra Pete ; [facility] metFORMIN HCl 500 MG Oral Tablet 04/24/2022 Provider : Diagnosis: Last Documented On 3 11:51AM By Joycelyn Deng ; [facility] Past Medications on file Benzoyl Peroxide Wash 5% External Liquid 05/12/2023 - 05/13/2023 Provider: True mcclelland MD Diagnosis: use as directed by Dr. Mas Last Documented On 4 12:51PM By Sandra Pete ; [facility] oxyCODONE HCl 5 MG Oral Tablet 08/19/2022 - 08/23/2022 Provider: Kelechi Acharya MD Diagnosis: 1 po q 4h 1 tablet by mouth every [address] op pain Last Documented On 3 9:55AM By Kelechi Acharya ; [facility] Ondansetron HCl 4 MG Oral Tablet 08/19/2022 - 09/03/19 Provider: Kelechi Acharya MD Diagnosis: 1-2 p o q 6-8h as needed for nausea Last Documented On 3 9:55AM By Kelechi Acharya ; [facility] traMADol HCl 50 MG Oral Tablet 08/19/2022 - 08/29/2022 Provider: Kelechi Acharya MD Diagnosis: 1-2 po q 4-6h PRN for breakthrough post op pain Last Documented On 3 9:55AM By Kelechi Acharya ; [facility] Lisinopril 10 MG Oral Tablet 04/24/2022 - 07/23/2022 P rovider: SULY LLAMAS MD Diagnosis: Last Documented On 3 11:50AM By Joycelyn Deng ; [facility] amLODIPine Besylate 10 MG Or al Tablet 04/24/2022 - 07/23/2022 Provider: SULY Neumann Diagnosis: Last Documented On 3 11:51AM By Joycelyn Deng ; [facility] Ultram 50 MG Oral Tablet 10/10/2021 - 11/09/2021 Provi latasha: Kelechi Acharya MD Diagnosis: 1 every 6 hours Last Documented On 2 3:11PM By Kelechi Acharya ; [facility] Cyclobenzaprine HCl 5 MG Ora l Tablet 10/10/2021 - 11/09/2021 Provider: Kelechi Acharya MD Diagnosis: twice a day Last Documented On 2 3:26PM By Kelechi Acharya ; [facility] Ventolin HFA 108 (90 Base) M CG/ACT Inhalation Aerosol Solution 08/20/2020 - 04/24/2022 Provider: Diagnosis: Last Documented On 3 11:51AM By Joycelyn Deng ; [facility] Montelukast Sodium 10 MG Oral Tablet 08/20/2020 - 04/13 Provider: Diagnosis: Last Documented On 3 11:51AM By Joycelyn Deng ; [facility] Azithromycin 250 MG Oral Tablet 08/20/2020 - Provider: Diagnosis: Last Documented On 3 11:51AM By Joycelyn Deng ; [facility] Lisinopril 10 MG Oral Tablet 07/24/2020 - 04/24/2022 Sriram gomezder: SULY LLAMAS MD Diagnosis: Last Documented On 3 11:50AM By Joycelyn Deng ; [facility] Voltaren 1% External Gel 06/05/2020 - 07/05/2020 Provi latasha: Kelechi Acharya MD Diagnosis: 4 gram three times a day Last Documented On 1 1:44PM By Nova Garcia ; [facility] Ultram 50 MG Oral Tablet 04/20/2020 - 09/19/2020 Provi latasha: Kelechi Acharya MD Diagnosis: 1-2 po q 4-6h 1-2 tablets by mouth every 4-6hrs for post op pain Last Documented On 1 1:12PM By Marianne Reynolds ; [facility] oxyCODONE HCl 5 MG Oral Tablet 04/20/2020 - 09/19/2020 Provider: Kelechi Acharya MD Diagnosis: 1 po q 4h 1 tablet by mouth every [address] op pain Last Documented On 1 1:12PM By Marianne Reynolds ; [facility] amLODIPine Besylate 10 MG Or al Tablet 04/18/2020 - 04/24/2022 Provider: SULY Neumann Diagnosis: Last Documented On 3 11:51AM By Joycelyn Deng ; [facility] Ultram 50 MG Oral Tablet 02/24/2020 - 10/25/2020 Provi latasha: Kelechi Acharya MD Diagnosis: 1-2 po q 4-6h 1-2 tablets by mouth every 4-6hrs for post op pain Last Documented On 1 1:40PM By Marianne Reynolds ; [facility] oxyCODONE HCl 5 MG Oral Tablet 02/24/2020 - 10/25/2020 Provider: Kelechi Acharya MD Diagnosis: 1 po q 4h 1 tablet by mouth every [address] op pain Last Documented On 1 1:40PM By Marianne Reynolds ; [facility] Zofran 4 MG Oral Tablet 02/24/2020 - 10/25/2020 Provid er: Kelechi Acharya MD Diagnosis: 1 po q 6 to 8 hrs prn pain t rudy 1 tablet every 6-8hrs for nausea, AFTER SURGERY Last Documented On 1:40PM By Marianne Reynolds ; [facility] Medications Administered Includes: Administered Medications in patient's chart No Administered Medications Recorded Vital Signs Includes: Vital Signs from 08/23/2022 through 08/24/2023 Vital Name 07/02/2023 01:36P 06/19/2023 11:50A 06/12/2023 11:12A 03/30/2023 02:59P 02/23/2023 03:16P Height (in) 69 69 69 69 69 Weight (lb) 236 236 236 236 242 Body Mass Index 34.9 34.9 34.9 34.9 35.7 Body Surface Area 2.2 2.2 2.2 2.2 2.2 Note: hdv hdv HDV bdf td Last Documented: On 07/02/2023 1:36PM ; [facility] On 06/19/2023 11:50AM ; [facility] On 06/12/2023 11:12AM ; [facility] On 03/30/2023 2:59PM ; [facility] On 02/23/2023 3:16PM ; [facility] Vital Name 01/08/2023 10:32A 11/20/2022 12:52P 10/08/2022 01:37P 09/03/2022 09:37A Height (in) 69 69 69 69 Weight (lb) 242 242 242 238 Body Mass Index 35.7 35.7 35.7 35.1 Body Surface Area 2.2 2.2 2.2 2.2 Note: bb snb ba ba Last Documented: On 01/08/2023 10:32AM ; [facility] On 11/20/2022 12:52PM ; [facility] On 10/08/2022 1:37PM ; [facility] On 09/03/2022 9:37AM ; [facility] Results Includes: Results from 08/23/2022 through 08/24/2023 No Results Recorded For Specified Dates History of Present Illness History of Present Illness not supported for this document type No History of Present Illness Recorded Social History Description Last Updated Tobacco non-user 04/24/2022 Last Documented On 3 2:40PM ; [facility] Not a smoker 10/15/2021 Last Documented On 2 11:55AM ; [facility] No recent change in diet 10/15/2021 Last Documented On 2 11:55AM ; [facility] Not a current smoker. 10/15/2021 Last Documented On 2 11:55AM ; [facility] Alcohol use 10/10/2021 Last Documented On 2 9:32AM ; [facility] Exercising regularly 10/10/2021 Last Documented On 2 9:32AM ; [facility] No caffeine use 10/10/2021 Last Documented On 2 9:32AM ; [facility] Not using drugs 10/10/2021 Last Documented On 2 9:32AM ; [facility] Non-smoker 10/10/2021 Last Documented On 2 9:32AM ; [facility] No recent change in diet 01/17/2020 Last Documented On 0 6:36AM ; [facility] Not a current smoker. 01/17/2020 Last Documented On 0 6:36AM ; [facility] Smoking Status Unknown Procedures and Surgical History Includes: Procedures from 08/23/2022 through 08/24/2023 Procedures Code Diagnosis Performing Provider Service Location Service Date X-RAY EXAM OF SHOULDER 2-3 VIEWS (RIGHT) 55203 Presence of right artificial shoulder joint Cheslee Malik Yeseniayd PA-C [facility] 07/02/2023 Last Documented On 4 2:28PM ; [facility] X-RAY EXAM OF SHOULDER 2-3 VIEWS (RIGHT) 70038 Presence of right artificial shoulder joint Cheslee Malik Yeseniayd PA-C [facility] 06/19/2023 Last Documented On 4 12:32PM ; [facility] X-RAY EXAM OF SHOULDER 2-3 VIEWS (RIGHT) 82392 Presence of right artificial shoulder joint Ez Ramirez PA-C [facility] 06/12/2023 Last Documented On 4 10:38AM ; [facility] RECONSTRUCT SHOULDER JOINT (RIGHT) 56007 Impingement syndrome of right shoulder, Primary osteoarthritis, right shoulder True Mas MD [facility] 05/29/2023 Last Documented On 4 9:34AM ; [facility] Surgical History Last Updated History of hernia repair 10/15/2021 Last Documented On 2 11:55AM ; [facility] Medical History Includes: Medical History in patient's chart Description Last Updated History of diabetes mellitus 04/24/2022 Last Documented On 3 2:40PM ; [facility] History of heart disease 10/15/2021 Last Documented On 2 11:55AM ; [facility] History of Hypertension 10/15/2021 Last Documented On 2 11:55AM ; [facility] History of diverticulitis of colon 10/10 Last Documented On 2 9:32AM ; [facility] No recent immunization for flu 2 Last Documented On 2 9:32AM ; [facility] No recent immunization for pneumococcal pneumonia 10/10/2021 Last Documented On 2 9:32AM ; [facility] Hernia repair 01/17/2020 Last Documented On 0 6:36AM ; [facility] Hypertension 01/17/2020 Last Documented On 0 6:36AM ; [facility] Family History Includes: Family History in patient's chart Description Last Updated Diabetes mellitus 10/10/2021 Last Documented On 2 9:32AM ; [facility] Family history of heart disease 10/11/19 22 Last Documented On 2 9:32AM ; [facility] Family history of systemic hypertension 10/10/2021 Last Documented On 2 9:32AM ; [facility] Stroke / Seizures 01/17/2020 Last Documented On 0 6:36AM ; [facility] Review of Systems Review of Systems not supported for this document type No Review of Systems Recorded Mental Status Description No anxiety Functional Status No Functional Status Recorded Physical Exam Physical Exam not supported for this document type No Physical Exam Recorded Immunizations Includes: Immunizations in patient's chart Vaccine Dose # Date Site Reaction(s) Status Source Influenza 1 05/17/2020 Complete (Refused - Patient objection) [facility] Last Documented On 1 1:27PM ; [facility] PCV (Pneumovax 23) 1 05/17/2020 Complete (Refused - Patient objection) [facility] Last Documented On 1 1:27PM ; [facility] Td 1 05/17/2020 Complete (Refused - Patient objection) [facility] Last Documented On 1 1:27PM ; [facility] Allergies Includes: Active, inactive, and resolved Allergies No Known Allergies Encounters Includes: Encounters from 08/23/2022 through 08/24/2023 Encounter Provider Location Date Check-In Time Check-Out Time Diagnosis Post Op Chesgerson Ramirez PA-C [facility] 07/02/19 24 1:17PM 1:49PM Overweight Post Op Chesgerson Ramirez PA-C [facility] 06/19/19 24 11:46AM 11:50AM Overweight Post Op Cheslee Malik Ramirez PA-C [facility] 06/12/19 24 11:00AM 11:20AM Overweight [facility] True Mas MD Surgery 05/29/19 24 05/28/2023 2:52PM 03/30/2023 11:59PM [Patient Encounter] True Mas MD 05/18/19 24 03/30/2023 9:41AM 03/30/2023 11:59PM IN HOUSE REFERRAL True Mas MD [facility] 03/30/20 23 2:30PM 3:24PM Follow Up Kelechi Acharya MD [facility] 02/24/20 3:15PM 3:35PM Overweight Follow Up Kelechi Acharya MD [facility] 01/09/20 10:04AM 10:42AM Overweight Follow Up Kelechi Acharya MD [facility] 11/21/19 12:49PM 1:04PM Overweight Post Op Shai Brown PA-C [facility] 10/09/19 1:34PM 2:01PM Post Op Shai Brown PA-C [facility] 09/04/19 9:27AM 10:12AM Insurance Includes: Active Insurance Policies Plan Name Member ID Group # Subscriber Relationship Effect katy Dates 1 - [employer] [facility] [id number] John Reddy Self 3 - Unknown Clinical Notes Includes: Signed Clinical Notes starting from 03/27/2022 * Progress note Date Encounter Last Documented by 07/02/2023 Post Op Last documented on 07/02/2023; 1:55 PM, Ez Ramirez PA-C; [facility] Active Problems & Conditions - Joint Pain, Localized in the Left Shoulder - Joint Pain, Localized in the Right Shoulder - Neck Pain Chief Complaint The Chief Complaint is: Right shoulder pain. Referred Here Referred by. History of Present Illness John Reddy is a 62 year old male. - Allergy list reviewed - Problem list reviewed - Medication list reviewed Current Medication - Eliquis 5 MG Oral Tablet take as directed 30 days, 0 refills - metFORMIN HCl 500 MG Oral Tablet 0 days, 0 refills Past Medical/Surgical History Reported: Immunization History: No recent immunization for flu and not for pneumococcal pneumonia. Diagnoses: Heart disease. Hypertension. Hypertension. Diverticulitis of colon. Diabetes mellitus Surgical: - Hernia repair - Hernia repair Social History Not a current smoker. Not a current smoker. Current diet: No recent change in diet. No recent change in diet. Caffeine use: No caffeine use. Tobacco use: Tobacco non-user. Not a smoker. Non-smoker. Alcohol: Alcohol use. Drug Use: Not using drugs. Habits: Exercising regularly. Allergies - No Known Allergies Family History Heart disease Stroke / Seizures Diabetes mellitus Systemic hypertension Review Of Systems Systemic: Not feeling tired, no recent weight loss, and no recent weight gain. Head: No headache and no sinus pain. Eyes: No vision problems, no Cataracts, no Glasses/Contacts, and no Glaucoma. Otolaryngeal: No hearing loss and no tinnitus. Cardiovascular: No chest pain or discomfort, no palpitations, no Hypertension, and no High Cholesterol. Pulmonary: No daytime asthma symptoms and no chronic cough. No wheezing. Gastrointestinal: No heartburn and no abdominal pain. No Indigestion, no Acid Reflux, no Peptic Ulcer, no GI Stomach Bleed, and no Ulcers. Endocrine: No hot flashes, no muscle weakness, no Diabetes, no Hypothyroid, and no Hyperthyroid. Hematologic: No easy bleeding, no tendency for easy bruising, and no Anemia. Musculoskeletal: No Arthritis and no lower back pain. No soft tissue swelling and no localized joint pain. Neurological: No dizziness, no convulsions, and no numbness. Psychological: No anxiety, no emotional lability, no depression, and no insomnia. Not crying for no reason. Skin: No dry skin. No Ulcers, no Scars, and no rash. Allergic and Immunologic: No complaint of seasonal allergic reaction. Physical Findings - Vitals taken 07/02/2023 01:36 pm hdv Height 69 in Weight 236 lbs Body Mass Index 34.9 kg/m2 Body Surface Area 2.2 m2 General Exam: The patient is awake and alert. No acute distress. Normal mood and affect for age. Well groomed and nourished Neuro: Sensation was intact to light touch over the extremity. Vascular: +2 radial pulses. No edema. Derm: No signs of active infection. No acute skin changes. Musculoskeletal: Normal gait and station. No muscle atrophy. No joint effusion. No muscle or bony deformity active forward flexion is to about 120. There still very mild swelling from the seroma but no sign of infection this is continuing to resolve nicely. No acromial tenderness Tests X-rays three-view of the right shoulder shows no acute abnormality the joint is well centered and aligned no loosening Assessment - Overweight Right shoulder reverse arthroplasty Counseling/Education - Lose weight Plan The seroma still very mild but again there is no sign of infection here. I think he has some postoperative pain which I would expect with certain motions. This is reassuring x-ray singleton. We will see him back as scheduled he can come in at any time if there is any concern or changes Notes This dictation was done with voice recognition software and may contain errors and omissions. Practice Management Use of tobacco assessment performed Review of medications documented. Care Team - SULY LLAMAS MD - TAXONOMIST * Progress note Date Encounter Last Documented by 06/19/2023 Post Op Last documented on 06/22/2023; 12:35 PM, Ez Ramirez PA-C; [facility], [facility] Active Problems & Conditions - Joint Pain, Localized in the Left Shoulder - Joint Pain, Localized in the Right Shoulder - Neck Pain Chief Complaint The Chief Complaint is: Right shoulder pain. Referred Here Referred by. History of Present Illness John Reddy is a 62 year old male. - Allergy list reviewed - Problem list reviewed - Medication list reviewed Current Medication - Eliquis 5 MG Oral Tablet take as directed 30 days, 0 refills - metFORMIN HCl 500 MG Oral Tablet 0 days, 0 refills Past Medical/Surgical History Reported: Immunization History: No recent immunization for flu and not for pneumococcal pneumonia. Diagnoses: Heart disease. Hypertension. Hypertension. Diverticulitis of colon. Diabetes mellitus Surgical: - Hernia repair - Hernia repair Social History Not a current smoker. Not a current smoker. Current diet: No recent change in diet. No recent change in diet. Caffeine use: No caffeine use. Tobacco use: Tobacco non-user. Not a smoker. Non-smoker. Alcohol: Alcohol use. Drug Use: Not using drugs. Habits: Exercising regularly. Allergies - No Known Allergies Family History Heart disease Stroke / Seizures Diabetes mellitus Systemic hypertension Review Of Systems Systemic: Not feeling tired, no recent weight loss, and no recent weight gain. Head: No headache and no sinus pain. Eyes: No vision problems, no Cataracts, no Glasses/Contacts, and no Glaucoma. Otolaryngeal: No hearing loss and no tinnitus. Cardiovascular: No chest pain or discomfort, no palpitations, no Hypertension, and no High Cholesterol. Pulmonary: No daytime asthma symptoms and no chronic cough. No wheezing. Gastrointestinal: No heartburn and no abdominal pain. No Indigestion, no Acid Reflux, no Peptic Ulcer, no GI Stomach Bleed, and no Ulcers. Endocrine: No hot flashes, no muscle weakness, no Diabetes, no Hypothyroid, and no Hyperthyroid. Hematologic: No easy bleeding, no tendency for easy bruising, and no Anemia. Musculoskeletal: No Arthritis and no lower back pain. No soft tissue swelling and no localized joint pain. Neurological: No dizziness, no convulsions, and no numbness. Psychological: No anxiety, no emotional lability, no depression, and no insomnia. Not crying for no reason. Skin: No dry skin. No Ulcers, no Scars, and no rash. Allergic and Immunologic: No complaint of seasonal allergic reaction. Physical Findings - Vitals taken 06/19/2023 11:50 am hdv Height 69 in Weight 236 lbs Body Mass Index 34.9 kg/m2 Body Surface Area 2.2 m2 There is no edema in the extremity. Sutures are removed. No sign of active infection. Sensation light touch is intact. +2 radial pulse and brisk cap refill. No sign of wound dehiscence. Normal motion of the elbow forearm wrist and hand. Assessment - Overweight Shoulder arthroplasty with resolved seroma Counseling/Education - Lose weight Plan We will initiate home exercise program he condition to continue his sling. He was educated on wound care. He will follow up as scheduled. He understands his restrictions Notes This dictation was done with voice recognition software and may contain errors and omissions. Practice Management Use of tobacco assessment performed Review of medications documented. Care Team - SULY LLAMAS MD - TAXONOMIST * Progress note Date Encounter Last Documented by 06/12/2023 Post Op Last documented on 06/12/2023; 11:18 AM, Ez Ramirez PA-C; [facility], [facility] Active Problems & Conditions - Joint Pain, Localized in the Left Shoulder - Joint Pain, Localized in the Right Shoulder - Neck Pain Chief Complaint The Chief Complaint is: Right shoulder pain. Referred Here Referred by. History of Present Illness John Reddy is a 62 year old male. - Allergy list reviewed - Problem list reviewed - Medication list reviewed Patient is seen today for follow up on his shoulder arthroplasty he is doing well. Minimal pain Current Medication - Eliquis 5 MG Oral Tablet take as directed 30 days, 0 refills - metFORMIN HCl 500 MG Oral Tablet 0 days, 0 refills Past Medical/Surgical History Reported: Immunization History: No recent immunization for flu and not for pneumococcal pneumonia. Diagnoses: Heart disease. Hypertension. Hypertension. Diverticulitis of colon. Diabetes mellitus Surgical: - Hernia repair - Hernia repair Social History Not a current smoker. Not a current smoker. Current diet: No recent change in diet. No recent change in diet. Caffeine use: No caffeine use. Tobacco use: Tobacco non-user. Not a smoker. Non-smoker. Alcohol: Alcohol use. Drug Use: Not using drugs. Habits: Exercising regularly. Allergies - No Known Allergies Family History Heart disease Stroke / Seizures Diabetes mellitus Systemic hypertension Review Of Systems Systemic: Not feeling tired, no recent weight loss, and no recent weight gain. Head: No headache and no sinus pain. Eyes: No vision problems, no Cataracts, no Glasses/Contacts, and no Glaucoma. Otolaryngeal: No hearing loss and no tinnitus. Cardiovascular: No chest pain or discomfort, no palpitations, no Hypertension, and no High Cholesterol. Pulmonary: No daytime asthma symptoms and no chronic cough. No wheezing. Gastrointestinal: No heartburn and no abdominal pain. No Indigestion, no Acid Reflux, no Peptic Ulcer, no GI Stomach Bleed, and no Ulcers. Endocrine: No hot flashes, no muscle weakness, no Diabetes, no Hypothyroid, and no Hyperthyroid. Hematologic: No easy bleeding, no tendency for easy bruising, and no Anemia. Musculoskeletal: No Arthritis and no lower back pain. No soft tissue swelling and no localized joint pain. Neurological: No dizziness, no convulsions, and no numbness. Psychological: No anxiety, no emotional lability, no depression, and no insomnia. Not crying for no reason. Skin: No dry skin. No Ulcers, no Scars, and no rash. Allergic and Immunologic: No complaint of seasonal allergic reaction. Physical Findings - Vitals taken 06/12/2023 11:12 am HDV Height 69 in Weight 236 lbs Body Mass Index 34.9 kg/m2 Body Surface Area 2.2 m2 General Exam: The patient is awake and alert. No acute distress. Normal mood and affect for age. Well groomed and nourished Neuro: Sensation was intact to light touch over the extremity. Vascular: +2 radial pulses. No edema. Derm: No signs of active infection. No acute skin changes. Musculoskeletal: Normal gait and station. No muscle atrophy. No joint effusion. No muscle or bony deformity he does have a seroma the jose armando were left hand. He is normal motion elbow forearm wrist and hand Tests X-rays 2 view of the shoulder show well aligned prosthesis. No sign of loosening fracture or dislocation. Assessment - Overweight Right shoulder reverse arthroplasty with seroma Counseling/Education - Lose weight Plan We are going to leave the jose armando in 1 more week. We will see him back as scheduled he understands his restrictions. Other than seroma everything looks very well postoperatively. We will see him sooner if needed Notes This dictation was done with voice recognition software and may contain errors and omissions. Practice Management Use of tobacco assessment performed Review of medications documented. Care Team - SULY LLAMAS MD - TAXONOMIST * Progress note Date Encounter Last Documented by 03/30/2023 IN HOUSE REFERRAL Last documente d on 04/09/2023; 11:26 AM, True Mas MD; [facility], [facility] Active Problems & Conditions - Joint Pain, Localized in the Left Shoulder - Joint Pain, Localized in the Right Shoulder - Neck Pain Chief Complaint The Chief Complaint is: Right shoulder pain. History of Present Illness John Reddy is a 62 year old male. - Allergy list reviewed - Problem list reviewed - Medication list reviewed 62 year old male presents in the office to be seen over his right shoulder. He has had a couple of repair's with Dr. Kelechi Acharya. He states that this was done back in August 2022. He is here to discuss further surgical options for his right shoulder. Current Medication - metFORMIN HCl 500 MG Oral Tablet 0 days, 0 refills Past Medical/Surgical History Reported: Immunization History: No recent immunization for flu and not for pneumococcal pneumonia. Diagnoses: Heart disease. Hypertension. Hypertension. Diverticulitis of colon. Diabetes mellitus Surgical: - Hernia repair - Hernia repair Social History Not a current smoker. Not a current smoker. Current diet: No recent change in diet. No recent change in diet. Caffeine use: No caffeine use. Tobacco use: Tobacco non-user. Not a smoker. Non-smoker. Alcohol: Alcohol use. Drug Use: Not using drugs. Habits: Exercising regularly. Allergies - No Known Allergies Family History Heart disease Stroke / Seizures Diabetes mellitus Systemic hypertension Physical Findings - Vitals taken 03/30/2023 02:59 pm bdf Height 69 in Weight 236 lbs Body Mass Index 34.9 kg/m2 Body Surface Area 2.2 m2 PATIENT ALERTED AND ORIENTED X 3 SHOULDER RIGHT: INSPECTION: surgical scars healed ATROPHY: DEFORMITY: ROM: PFE: 120 degrees with positive drop arm PER: 20 degrees PIR: AFE: 90 degrees with scapular substitution AER: 25 degrees AIR: deferred IMPINGEMENT: STRENGTH: (ROTATOR CUFF) EMPTY CAN: 2/5 EXTERNAL ROTATION: 3/5 SPECIAL TESTING: BELLY PRESS: positive BEAR HUG: LIFT OFF: deferred SPEEDS: positive NEURO/VASCULAR SENSATION: normal AXILLARY: LABC: RADIAL: MEDIAN: ULNAR: MOTOR: normal DELTOID: BICEPS: TRICEPS: EPL: FPL: IO: PULSES: normal RADIAL: ULNAR: Tests MRI shoulder (right): Full-thickness rotator cuff read tear with retraction level the glenoid high-grade atrophy of the supra and infraspinatus intermediate grade atrophy of the subscapularis postsurgical changes with anchor placement small to moderately sized inferior humeral osteophyte Assessment rotator cuff arthropathy Plan 62 year old male presents in the office to be seen over his right shoulder. He has had a couple of repair's with Dr. Kelechi Acharya. He states that this was done back in August 2022. He is here to discuss further surgical options for his right shoulder. I have reviewed the MR imaging in the office with him today. His MR images reveals that he has a recurrent full thickness rotator cuff tear with retraction. I do believe that his rotator cuff is irreparable. I have discussed treatment options with him in the office with him today. I indicate him for a right reverse total shoulder arthroplasty. I have discussed risks and benefits. The patient understands the risk of surgery to include but are not limited to infection, possible nerve damage, tendon or vessel injury, scar sensitivity and anesthesia.The patient understands the need for postoperative rehabilitation and therapy. The patient had no further questions regarding the surgery or potential risks. This patient has exhausted 12 weeks of conservative treatment. Conservative measures have included rest, activity modification, oral anti-inflammatories, exercise treatment and local pain reduction modalities. I will have utilize an arc sling post operatively. I have answered all questions in the office with him today. procedure: right reverse total shoulder arthroplasty using arthrex @ [facility]. post operative dme: arc sling This patient was prescribed an arc shoulder brace for [rotator cuff arthropathy ]. The patient has weakness and / or instability of their [right upper extremity] which requires stabilization from this semi-rigid / rigid orthosis to improve their function. Verbal and written instructions for the use and application of this item were given. Patient was instructed that should the brace result in increased pain, decreased sensation, increased swelling, or an overall worsening of their medical condition, to please contact our office immediately. Orthotic management and training was provided for skin care, modifications due to healing tissues, edema changes, interruption in skin integrity, and safety precautions with the orthosis. Notes This dictation was done with voice recognition software and may contain errors and omissions. transcribed by Rachael Diaz Care Team - SULY LLAMAS MD - TAXONOMIST * Progress note Date Encounter Last Documented by 02/23/2023 Follow Up Last documented on 03/02/2023; 10:40 AM, Kelechi Acharya MD; [facility], [facility] Active Problems & Conditions - Joint Pain, Localized in the Left Shoulder - Joint Pain, Localized in the Right Shoulder - Neck Pain Chief Complaint The Chief Complaint is: R Shoulder POV. Referred Here Referred by. History of Present Illness John Reddy is a 62 year old male. - Allergy list reviewed - Problem list reviewed - Medication list reviewed - Previous history of new onset pain Injury is not work related or an automotive accident - Patient pain level from 1-10: 4 - No previous treatment. Follow-up right shoulder after rotator cuff repair he is now almost 5 and half months out from surgery still struggling in abduction strength is not improving like it did with the left shoulder he is concerned about possible retear thinks he may have damaged something in the process of physical therapy still anterior pain anterior lateral rating to the elbow Current Medication - metFORMIN HCl 500 MG Oral Tablet 0 days, 0 refills Past Medical/Surgical History Reported: Immunization History: No recent immunization for flu and not for pneumococcal pneumonia. Diagnoses: Heart disease. Hypertension. Hypertension. Diverticulitis of colon. Diabetes mellitus Surgical: - Hernia repair - Hernia repair Social History Not a current smoker. Not a current smoker. Current diet: No recent change in diet. No recent change in diet. Caffeine use: No caffeine use. Tobacco use: Tobacco non-user. Not a smoker. Non-smoker. Alcohol: Alcohol use. Drug Use: Not using drugs. Habits: Exercising regularly. Allergies - No Known Allergies Family History Heart disease Stroke / Seizures Diabetes mellitus Systemic hypertension Review Of Systems Systemic: Not feeling tired, no recent weight loss, and no recent weight gain. Head: Headache. No sinus pain. Eyes: Vision problems and Cataracts. No Glasses/Contacts and no Glaucoma. Otolaryngeal: No hearing loss. Tinnitus. Cardiovascular: No chest pain or discomfort and no palpitations. Hypertension. No High Cholesterol. Pulmonary: No daytime asthma symptoms and no chronic cough. Wheezing. Gastrointestinal: No heartburn and no abdominal pain. No Indigestion, no Acid Reflux, no Peptic Ulcer, no GI Stomach Bleed, and no Ulcers. Endocrine: No hot flashes and no muscle weakness. Diabetes. No Hypothyroid and no Hyperthyroid. Hematologic: No easy bleeding, no tendency for easy bruising, and no Anemia. Musculoskeletal: No Arthritis and no lower back pain. No soft tissue swelling and no localized joint pain. Neurological: Dizziness. No convulsions and no numbness. Psychological: No anxiety, no emotional lability, no depression, and no insomnia. Not crying for no reason. Skin: No dry skin. No Ulcers, no Scars, and no rash. Allergic and Immunologic: Complaint of seasonal allergic reaction. Reviewed on 01-08-2023 Physical Findings - Vitals taken 02/23/2023 03:16 pm td Height 69 in 60 - 80 Weight 242 lbs 123 - 215 Body Mass Index 35.7 kg/m2 Body Surface Area 2.2 m2 Standard Measurements: - Patient was overweight. abduction strength of the right shoulder4-/5 abduction strength he can get to about 80 degrees with without assistance further elevation requires assistance X rotation strength is 4 - interpretation 4/5 Tests MRI shows massive rotator cuff tear right shoulder with significant retraction and superior migration of the humeral head with some degenerative changes in the glenohumeral joint Assessment - Overweight Patient with massive rotator cuff repair concern for retear right shoulder Previous Tests Imaging: X-Ray: An X-ray was performed when raising the arm the pain elevates. Counseling/Education - Lose weight Plan Recommend repeat MRI right shoulder to make sure he is healing appropriately and that there is not failure of the repair and follow-up after that hold on therapy until imaging is done to further evaluate the repair site Patient after failed repair of massive rotator cuff tear will need a reverse shoulder replacement I am referring him to my partner for said procedure and evaluation treatment and patient is in agreement we discussed some of the details of this treatment today Notes This dictation was done with voice recognition software and may contain errors and omissions. Practice Management Use of tobacco assessment performed Review of medications documented. Care Team - SULY LLAMAS MD - TAXONOMIST * Progress note Date Encounter Last Documented by 01/08/2023 Follow Up Last documented on 01/08/2023; 12:05 PM, Kelechi Acharya MD; [facility], [facility] Active Problems & Conditions - Joint Pain, Localized in the Left Shoulder - Joint Pain, Localized in the Right Shoulder - Neck Pain Chief Complaint The Chief Complaint is: R Shoulder POV. Referred Here Referred by. History of Present Illness John Reddy is a 62 year old male. - Allergy list reviewed - Problem list reviewed - Medication list reviewed - Previous history of new onset pain Injury is not work related or an automotive accident - Patient pain level from 1-10: 4 - No previous treatment. Follow-up right shoulder after rotator cuff repair he is now almost 5 and half months out from surgery still struggling in abduction strength is not improving like it did with the left shoulder he is concerned about possible retear thinks he may have damaged something in the process of physical therapy still anterior pain anterior lateral rating to the elbow Current Medication - metFORMIN HCl 500 MG Oral Tablet 0 days, 0 refills Past Medical/Surgical History Reported: Immunization History: No recent immunization for flu and not for pneumococcal pneumonia. Diagnoses: Heart disease. Hypertension. Hypertension. Diverticulitis of colon. Diabetes mellitus Surgical: - Hernia repair - Hernia repair Social History Not a current smoker. Not a current smoker. Current diet: No recent change in diet. No recent change in diet. Caffeine use: No caffeine use. Tobacco use: Tobacco non-user. Not a smoker. Non-smoker. Alcohol: Alcohol use. Drug Use: Not using drugs. Habits: Exercising regularly. Allergies - No Known Allergies Family History Heart disease Stroke / Seizures Diabetes mellitus Systemic hypertension Review Of Systems Systemic: Not feeling tired, no recent weight loss, and no recent weight gain. Head: Headache. No sinus pain. Eyes: Vision problems and Cataracts. No Glasses/Contacts and no Glaucoma. Otolaryngeal: No hearing loss. Tinnitus. Cardiovascular: No chest pain or discomfort and no palpitations. Hypertension. No High Cholesterol. Pulmonary: No daytime asthma symptoms and no chronic cough. Wheezing. Gastrointestinal: No heartburn and no abdominal pain. No Indigestion, no Acid Reflux, no Peptic Ulcer, no GI Stomach Bleed, and no Ulcers. Endocrine: No hot flashes and no muscle weakness. Diabetes. No Hypothyroid and no Hyperthyroid. Hematologic: No easy bleeding, no tendency for easy bruising, and no Anemia. Musculoskeletal: No Arthritis and no lower back pain. No soft tissue swelling and no localized joint pain. Neurological: Dizziness. No convulsions and no numbness. Psychological: No anxiety, no emotional lability, no depression, and no insomnia. Not crying for no reason. Skin: No dry skin. No Ulcers, no Scars, and no rash. Allergic and Immunologic: Complaint of seasonal allergic reaction. Reviewed on 01-08-2023 Physical Findings - Vitals taken 01/08/2023 10:32 am bb Height 69 in 60 - 80 Weight 242 lbs 123 - 215 Body Mass Index 35.7 kg/m2 Body Surface Area 2.2 m2 Standard Measurements: - Patient was overweight. abduction strength of the right shoulder4-/5 abduction strength he can get to about 80 degrees with without assistance further elevation requires assistance X rotation strength is 4 - interpretation 4/5 Assessment - Overweight Patient with massive rotator cuff repair concern for retear right shoulder Previous Tests Imaging: X-Ray: An X-ray was performed when raising the arm the pain elevates. Counseling/Education - Lose weight Plan StartCited - Pain in right shoulder Radiology/MRI: MRI Shoulder Instructions: RIGHT SHOULDER MRI EndCited Recommend repeat MRI right shoulder to make sure he is healing appropriately and that there is not failure of the repair and follow-up after that hold on therapy until imaging is done to further evaluate the repair site Notes This dictation was done with voice recognition software and may contain errors and omissions. Practice Management Use of tobacco assessment performed Review of medications documented. Care Team - SULY LLAMAS MD - TAXONOMIST * Progress note Date Encounter Last Documented by 11/20/2022 Follow Up Last documented on 11/20/2022; 1:09 PM, Kelechi Acharya MD; [facility], [facility] Active Problems & Conditions - Joint Pain, Localized in the Left Shoulder - Joint Pain, Localized in the Right Shoulder - Neck Pain Chief Complaint The Chief Complaint is: R Shoulder POV. Referred Here Referred by. History of Present Illness John Reddy is a 62 year old male. - Allergy list reviewed - Problem list reviewed - Medication list reviewed Follow-up for right shoulder rotator cuff repair patient is doing well at 3 months after massive repair making steady progress with PT Current Medication - metFORMIN HCl 500 MG Oral Tablet 0 days, 0 refills Past Medical/Surgical History Reported: Immunization History: No recent immunization for flu and not for pneumococcal pneumonia. Diagnoses: Heart disease. Hypertension. Hypertension. Diverticulitis of colon. Diabetes mellitus Surgical: - Hernia repair - Hernia repair Social History Not a current smoker. Not a current smoker. Current diet: No recent change in diet. No recent change in diet. Caffeine use: No caffeine use. Tobacco use: Tobacco non-user. Not a smoker. Non-smoker. Alcohol: Alcohol use. Drug Use: Not using drugs. Habits: Exercising regularly. Allergies - No Known Allergies Family History Heart disease Stroke / Seizures Diabetes mellitus Systemic hypertension Review Of Systems Systemic: Not feeling tired, no recent weight loss, and no recent weight gain. Head: Headache. No sinus pain. Eyes: Vision problems and Cataracts. No Glasses/Contacts and no Glaucoma. Otolaryngeal: No hearing loss. Tinnitus. Cardiovascular: No chest pain or discomfort and no palpitations. Hypertension. No High Cholesterol. Pulmonary: No daytime asthma symptoms and no chronic cough. Wheezing. Gastrointestinal: No heartburn and no abdominal pain. No Indigestion, no Acid Reflux, no Peptic Ulcer, no GI Stomach Bleed, and no Ulcers. Endocrine: No hot flashes and no muscle weakness. Diabetes. No Hypothyroid and no Hyperthyroid. Hematologic: No easy bleeding, no tendency for easy bruising, and no Anemia. Musculoskeletal: No Arthritis and no lower back pain. No soft tissue swelling and no localized joint pain. Neurological: Dizziness. No convulsions and no numbness. Psychological: No anxiety, no emotional lability, no depression, and no insomnia. Not crying for no reason. Skin: No dry skin. No Ulcers, no Scars, and no rash. Allergic and Immunologic: Complaint of seasonal allergic reaction. Physical Findings - Vitals taken 11/20/2022 12:52 pm snb Height 69 in 60 - 80 Weight 242 lbs 123 - 215 Body Mass Index 35.7 kg/m2 Body Surface Area 2.2 m2 Standard Measurements: - Patient was overweight. Right rightShoulder abduction is to 110 with 4 - strength in abduction 4/5 external and internal rotation passive motion 90 degrees external Tatian abduction internal rotation just past iliac crest X rotation 90 right shoulder Assessment - Overweight Right shoulder rotator cuff repair improving Counseling/Education - Lose weight Plan StartCited - Strain of musc/tend the rotator cuff of right shoulder, init Therapy/Physical Therapy: Shoulder Instructions: See PT order attached EndCited Continue PT and follow-up will be in 6 weeks Notes This dictation was done with voice recognition software and may contain errors and omissions. transcribed by Hermes Riley Practice Management Use of tobacco assessment performed Review of medications documented. Care Team - SULY LLAMSA MD - TAXONOMIST * Progress note Date Encounter Last Documented by 10/08/2022 Post Op Last documented on 10/08/2022; 3:35 PM, Shai De Santiago; [facility], [facility] Active Problems & Conditions - Joint Pain, Localized in the Left Shoulder - Joint Pain, Localized in the Right Shoulder - Neck Pain Chief Complaint The Chief Complaint is: R Shoulder POV. Referred Here Referred by. History of Present Illness John Reddy is a 62 year old male. - Allergy list reviewed - Problem list reviewed - Medication list reviewed 61 year old male in today for a follow up on a right shoulder scope with RCR and bicep tenodesis. Patient is doing well today. He is using a sling with the bump today. He has now started therapy at this point. He states that he still has some stiffness in the shoulder. He states that he is doing his exercises at home as well. Review of systems: All systems within normal limits with exception of right shoulder pain. The patient's medications, medication allergies, Past Medical and Surgical History, pertinent Family History, Social History and ten point Review of Systems was reviewed by me with the patient per the registration sheet dated today. It was then signed today and scanned into the electronic record. Physical Exam: CONSTITUTIONAL: Well developed, well groomed, well nourished patient in no acute distress who appears stated age, height and weight. PSYCHIATRIC: The patient is alert and oriented to person, place, date and situation. Mood and affect are normal for current situation. NEUROLOGICAL: Sensation normal bilateral upper and lower extremities. LYMPHATIC: No pitting edema noted in the lower extremities. SKIN: No lesions noted on upper or lower extremities. Skin is dry, warm and with normal turgor. VASCULAR: No swelling in upper or lower extremities other than described below in extremity exam. Dorsalis Pedis Pulses normal in lower extremities. GAIT AND STATION: Normal gait without assistive devices. Station normal. Musculoskeletal: full rom of the elbow, 85 degrees forward elevation Assessment: s/p Right shoulder RCR, bicep tenodesis Plan: Patient is doing very well. He no longer needs to wear the sling. He will continue with therapy and doing the exercises at home. He should use heat before and ice after exercises. We will see him back in 6 weeks. Current Medication - metFORMIN HCl 500 MG Oral Tablet 0 days, 0 refills Past Medical/Surgical History Reported: Immunization History: No recent immunization for flu and not for pneumococcal pneumonia. Diagnoses: Heart disease. Hypertension. Hypertension. Diverticulitis of colon. Diabetes mellitus Surgical: - Hernia repair - Hernia repair Social History Not a current smoker. Not a current smoker. Current diet: No recent change in diet. No recent change in diet. Caffeine use: No caffeine use. Tobacco use: Tobacco non-user. Not a smoker. Non-smoker. Alcohol: Alcohol use. Drug Use: Not using drugs. Habits: Exercising regularly. Allergies - No Known Allergies Family History Heart disease Stroke / Seizures Diabetes mellitus Systemic hypertension Review Of Systems Systemic: Not feeling tired, no recent weight loss, and no recent weight gain. Head: Headache. No sinus pain. Eyes: Vision problems and Cataracts. No Glasses/Contacts and no Glaucoma. Otolaryngeal: No hearing loss. Tinnitus. Cardiovascular: No chest pain or discomfort and no palpitations. Hypertension. No High Cholesterol. Pulmonary: No daytime asthma symptoms and no chronic cough. Wheezing. Gastrointestinal: No heartburn and no abdominal pain. No Indigestion, no Acid Reflux, no Peptic Ulcer, no GI Stomach Bleed, and no Ulcers. Endocrine: No hot flashes and no muscle weakness. Diabetes. No Hypothyroid and no Hyperthyroid. Hematologic: No easy bleeding, no tendency for easy bruising, and no Anemia. Musculoskeletal: No Arthritis and no lower back pain. No soft tissue swelling and no localized joint pain. Neurological: Dizziness. No convulsions and no numbness. Psychological: No anxiety, no emotional lability, no depression, and no insomnia. Not crying for no reason. Skin: No dry skin. No Ulcers, no Scars, and no rash. Allergic and Immunologic: Complaint of seasonal allergic reaction. Physical Findings - Vitals taken 10/08/2022 01:37 pm ba Height 69 in Weight 242 lbs Body Mass Index 35.7 kg/m2 Body Surface Area 2.2 m2 Standard Measurements: - Patient was overweight. Counseling/Education - Lose weight Plan StartCited - Other Therapy/Physical Therapy: Shoulder Instructions: See PT order attached EndCited Notes This dictation was done with voice recognition software and may contain errors and omissions. transcribed by Hermes Riley Practice Management Use of tobacco assessment performed. Care Team - SULY LLAMAS MD - TAXONOMIST * Progress note Date Encounter Last Documented by 09/03/2022 Post Op Last documented on 09/03/2022; 4:00 PM, Shai De Santiago; [facility], [facility] Active Problems & Conditions - Joint Pain, Localized in the Left Shoulder - Joint Pain, Localized in the Right Shoulder - Neck Pain Chief Complaint The Chief Complaint is: R Shoulder POV. Referred Here Referred by. History of Present Illness John Reddy is a 61 year old male. - Allergy list reviewed - Problem list reviewed - Medication list reviewed 61 year old male in today for a 1st post op on a right shoulder scope with RCR and bicep tenodesis. Patient is doing well today. The sutures were removed and the wounds are healing as expected. He is using a sling with the bump today. He states that he has not yet started physical therapy. He is doing general ROM exercises of the right shoulder. He states that he had a bloodclot that went to his lungs. He is now on blood thinners. Review of systems: All systems within normal limits with exception of right shoulder pain. The patient's medications, medication allergies, Past Medical and Surgical History, pertinent Family History, Social History and ten point Review of Systems was reviewed by me with the patient per the registration sheet dated today. It was then signed today and scanned into the electronic record. Physical Exam: CONSTITUTIONAL: Well developed, well groomed, well nourished patient in no acute distress who appears stated age, height and weight. PSYCHIATRIC: The patient is alert and oriented to person, place, date and situation. Mood and affect are normal for current situation. NEUROLOGICAL: Sensation normal bilateral upper and lower extremities. LYMPHATIC: No pitting edema noted in the lower extremities. SKIN: No lesions noted on upper or lower extremities. Skin is dry, warm and with normal turgor. VASCULAR: No swelling in upper or lower extremities other than described below in extremity exam. Dorsalis Pedis Pulses normal in lower extremities. GAIT AND STATION: Normal gait without assistive devices. Station normal. Musculoskeletal: full rom of the elbow, 35 degrees forward elevation Assessment: s/p Right shoulder RCR, bicep tenodesis Plan: Patient is doing very well. The sutures were removed without a problem and the wound is healing as expected. I talked to the patient about the post op care and recovery time line and he is understanding. Patient should do the physical therapy exercise 2-3 times in between physical therapy visits. Patient no longer needs to wear the sling with the bump attachment. They can remove the sling to do general ROM exercises. They can slowly get back in to their day to day routine and do activity below the waist. When they are comfortable they can slowly get back to their day to day activity as tolerated. He will be given a order for therapy today. We will see him back in 3-4 weeks. Current Medication - metFORMIN HCl 500 MG Oral Tablet 0 days, 0 refills Past Medical/Surgical History Reported: Immunization History: No recent immunization for flu and not for pneumococcal pneumonia. Diagnoses: Heart disease. Hypertension. Hypertension. Diverticulitis of colon. Diabetes mellitus Surgical: - Hernia repair - Hernia repair Social History Not a current smoker. Not a current smoker. Current diet: No recent change in diet. No recent change in diet. Caffeine use: No caffeine use. Tobacco use: Tobacco non-user. Not a smoker. Non-smoker. Alcohol: Alcohol use. Drug Use: Not using drugs. Habits: Exercising regularly. Allergies - No Known Allergies Family History Heart disease Stroke / Seizures Diabetes mellitus Systemic hypertension Review Of Systems Systemic: Not feeling tired, no recent weight loss, and no recent weight gain. Head: Headache. No sinus pain. Eyes: Vision problems and Cataracts. No Glasses/Contacts and no Glaucoma. Otolaryngeal: No hearing loss. Tinnitus. Cardiovascular: No chest pain or discomfort and no palpitations. Hypertension. No High Cholesterol. Pulmonary: No daytime asthma symptoms and no chronic cough. Wheezing. Gastrointestinal: No heartburn and no abdominal pain. No Indigestion, no Acid Reflux, no Peptic Ulcer, no GI Stomach Bleed, and no Ulcers. Endocrine: No hot flashes and no muscle weakness. Diabetes. No Hypothyroid and no Hyperthyroid. Hematologic: No easy bleeding, no tendency for easy bruising, and no Anemia. Musculoskeletal: No Arthritis and no lower back pain. No soft tissue swelling and no localized joint pain. Neurological: Dizziness. No convulsions and no numbness. Psychological: No anxiety, no emotional lability, no depression, and no insomnia. Not crying for no reason. Skin: No dry skin. No Ulcers, no Scars, and no rash. Allergic and Immunologic: Complaint of seasonal allergic reaction. Physical Findings - Vitals taken 09/03/2022 09:37 am ba Height 69 in Weight 238 lbs Body Mass Index 35.1 kg/m2 Body Surface Area 2.2 m2 Standard Measurements: - Patient was overweight. Counseling/Education - Lose weight Plan StartCited - Other Therapy/Physical Therapy: Shoulder Instructions: See PT order attached EndCited Notes This dictation was done with voice recognition software and may contain errors and omissions. transcribed by Hermes Riley Practice Management Use of tobacco assessment performed. Care Team - SULY LLAMAS MD - TAXONOMIST
--- OUTSIDE RECORDS SUMMARY | 2023-08-24 17:55 | XMS_ITS | Clinical Summary ---
Author Name Unknown Address [address] [place] [address] Phone Organization [facility] Address [address] [place] [address] Phone Care Team Providers Care Marketing Project Coordinator Name Role Phone Patrizia CERDA, Kelechi Unavailable [phone] SULY LLAMAS MD Primary Care Provider [phone] Reason for Visit and Chief Complaint The Chief Complaint is: right shoulder pain Problems Includes: Problems addressed during this encounter and other active Problems All Visits Onset Date Resolved Date Provider Condition S tatus Neck Pain 10/10/2021 Kelechi Acharya MD Active Last Documented On 2 2:11PM ; KELSEY LINDO Joint Pain, Localized in the Right Shoulder 10/10/2021 Kelechi Acharya MD Active Last Documented On 2 2:04PM ; KELSEY LINDO Joint Pain, Localized in the Left Shoulder 01/17/2020 Kelechi Acharya MD Active Last Documented On 0 1:15PM ; [facility], [facility] Plan of Treatment We are going to leave the jose armando in 1 more week. We will see him back as scheduled he understands his restrictions. Other than seroma everything looks very well postoperatively. We will see him sooner if needed - Last Documented On 06/12/2023 11:18AM ; [facility], [facility] Future Appointments Date Time Location Provi latasha Follow Up 09/10/2023 11:15AM [facility] paedics [facility] Arnie Ramirez PA-C Last Documented On 4 4:45PM ; [facility] Instructions to patient Lose weight Last Documented On 4 11:12AM ; [facility] Assessments Includes: Assessments from this encounter Findings - Overweight - Last Documented On 06/12/2023 11:18AM ; [facility] Right shoulder reverse arthroplasty with seroma - Last Documented On 06/12/2023 11:18AM ; [facility] Instructions Includes: Instructions from this encounter Instructions to patient Lose weight Last Documented On 4 11:12AM ; [facility] Medical Equipment - Implanted Devices Includes: Current Devices No Medical Equipment Recorded Medications Includes: Medications discussed during this encounter and other current Medications Current Medications (continue as prescribed) Eliquis 5 MG Oral Tablet 03/06/2023 Provider: PHYLLIS LLAMAS MD Diagnosis: Last Documented On 4 9:39AM By iris ; [facility] metFORMIN HCl 500 MG Oral Tablet 04/24/2022 Provider : Diagnosis: Last Documented On 3 11:51AM By Joycelyn Deng ; [facility] Past Medications on file Benzoyl Peroxide Wash 5% External Liquid 05/12/2023 - 05/13/2023 Provider: True mcclelland MD Diagnosis: use as directed by Dr. Mas Last Documented On 4 12:51PM By Sandra Pete ; [facility] oxyCODONE HCl 5 MG Oral Tablet 08/19/2022 - 08/23/2022 Provider: Kelechi Acharya MD Diagnosis: 1 po q 4h 1 tablet by mouth every [address] op pain Last Documented On 3 9:55AM By Kelechi Acharya ; [facility] Ondansetron HCl 4 MG Oral Tablet 08/19/2022 - 09/03/19 Provider: Kelechi Acharya MD Diagnosis: 1-2 p o q 6-8h as needed for nausea Last Documented On 3 9:55AM By Kelechi Acharya ; [facility] traMADol HCl 50 MG Oral Tablet 08/19/2022 - 08/29/2022 Provider: Kelechi Acharya MD Diagnosis: 1-2 po q 4-6h PRN for breakthrough post op pain Last Documented On 3 9:55AM By Kelechi Acharya ; [facility] Lisinopril 10 MG Oral Tablet 04/24/2022 - 07/23/2022 Sriram wagoner: SULY LLAMAS MD Diagnosis: Last Documented On 3 11:50AM By Joycelyn Nairers ; [facility] amLODIPine Besylate 10 MG Or al Tablet 04/24/2022 - 07/23/2022 Provider: SULY Neumann Diagnosis: Last Documented On 3 11:51AM By Joycelyn Nairers ; [facility] Ultram 50 MG Oral Tablet 10/10/2021 - 11/09/2021 Provi latasha: Kelechi Acharya MD Diagnosis: 1 every 6 hours Last Documented On 2 3:11PM By Kelechi Acharya ; [facility] Cyclobenzaprine HCl 5 MG Ora l Tablet 10/10/2021 - 11/09/2021 Provider: Kelechi Acharya MD Diagnosis: twice a day Last Documented On 2 3:26PM By Kelechi Acharya ; [facility] Voltaren 1% External Gel 06/05/2020 - 07/05/2020 Provi latasha: Kelechi Acharya MD Diagnosis: 4 gram three times a day Last Documented On 1 1:44PM By Nova Garcia ; [facility] Medications Administered Includes: Administered Medications from this encounter No Administered Medications Recorded Vital Signs Includes: Vital Signs from this encounter Vital Name 06/12/2023 11:12A Height (in) 69 Weight (lb) 236 Body Mass Index 34.9 Body Surface Area 2.2 Note: HDV Last Documented: On 06/12/2023 11:12A M ; [facility] Results Includes: Results discussed during this encounter No Results Recorded For Specified Dates History of Present Illness Includes: History of Present Illness from this encounter JOSUE Reddy is a 62 year old male. - Allergy list reviewed - Problem list reviewed - Medication list reviewed Patient is seen today for follow up on his shoulder arthroplasty he is doing well. Minimal pain Social History Description Last Updated Tobacco non-user 04/24/2022 Last Documented On 4 11:12AM ; [facility] Not a smoker 10/15/2021 Last Documented On 4 11:12AM ; [facility] No recent change in diet 10/15/2021 Last Documented On 4 11:12AM ; [facility] Not a current smoker. 10/15/2021 Last Documented On 4 11:12AM ; [facility] Alcohol use 10/10/2021 Last Documented On 4 11:12AM ; [facility] Exercising regularly 10/10/2021 Last Documented On 4 11:12AM ; [facility] No caffeine use 10/10/2021 Last Documented On 4 11:12AM ; [facility], [facility] Not using drugs 10/10/2021 Last Documented On 4 11:12AM ; [facility] Non-smoker 10/10/2021 Last Documented On 4 11:12AM ; [facility] No recent change in diet 01/17/2020 Last Documented On 4 11:12AM ; [facility], [facility] Not a current smoker. 01/17/2020 Last Documented On 4 11:12AM ; [facility], [facility] Smoking Status Unknown Procedures and Surgical History Includes: Procedures from this encounter Procedures Code Diagnosis Performing Provider Service Location Service Date X-RAY EXAM OF SHOULDER 2-3 VIEWS (RIGHT) 07207 Presence of right artificial shoulder joint Ez Ramirez PA-C [facility] 06/12/2023 Last Documented On 4 10:38AM ; [facility], [facility] use of tobacco assessment performed 1000F Last Documented On 4 11:12AM ; [facility], [facility] review of medications documented 1160F Last Documented On 4 11:12AM ; [facility], [facility] Surgical History Last Updated History of hernia repair 10/15/2021 Last Documented On 4 11:12AM ; [facility] Medical History Includes: Medical History addressed during this encounter Description Last Updated History of diabetes mellitus 04/24/2022 Last Documented On 4 11:12AM ; [facility] History of heart disease 10/15/2021 Last Documented On 4 11:12AM ; [facility] History of Hypertension 10/15/2021 Last Documented On 4 11:12AM ; [facility] History of diverticulitis of colon 10/10 Last Documented On 4 11:12AM ; [facility], [facility] No recent immunization for flu 2 Last Documented On 4 11:12AM ; [facility] No recent immunization for pneumococcal pneumonia 10/10/2021 Last Documented On 4 11:12AM ; [facility], [facility] Hernia repair 01/17/2020 Last Documented On 4 11:12AM ; [facility] Hypertension 01/17/2020 Last Documented On 4 11:12AM ; [facility], [facility] Family History Includes: Family History addressed during this encounter Description Last Updated Diabetes mellitus 10/10/2021 Last Documented On 4 11:12AM ; [facility], [facility] Family history of heart disease 10/11/19 22 Last Documented On 4 11:12AM ; [facility], [facility] Family history of systemic hypertension 10/10/2021 Last Documented On 4 11:12AM ; [facility] Stroke / Seizures 01/17/2020 Last Documented On 4 11:12AM ; [facility] Review of Systems Includes: Review of Systems from this encounter Systemic: Not feeling tired, no recent weight [...] Immunologic: No complaint of seasonal allergic reaction. Mental Status Includes: Mental Status from this encounter Description No anxiety Functional Status Includes: Functional Status from this encounter No Functional Status Recorded Physical Exam Includes: Physical Exam from this encounter Allergies Includes: Active Allergies No Known Allergies Encounters Encounter Provider Location Date Check-In Time Check-Out Time Diagnosis Post Op Ez Ramirez PA-C [facility] B 4 11:00AM 11:20AM Overweight Insurance Includes: Active Insurance Policies Plan Name Member ID Group # Subscriber Relationship Effect katy Dates 1 - [employer] [facility] [id number] John Reddy Self 3 - Unknown Clinical Notes Includes: Clinical Notes from this encounter * Progress note Date Encounter Last Documented by 06/12/2023 Post Op Last documented on 06/12/2023; 11:18 AM, Ez Ramirez PA-C; [facility], [facility] Active Problems & Conditions - Joint Pain, [...] Care Team - SULY LLAMAS MD - RAG WILLOW OPERATOR
--- OUTSIDE RECORDS SUMMARY | 2023-08-24 17:55 | XMS_ITS | Clinical Summary ---
Author Name Unknown Address [address] [place] [address] Phone Organization [facility] , [facility] Address [address] [place] [address] Phone Care Team Providers Care Toy Assembler Name Role Phone Patrizia CERDA, Kelechi Unavailable [phone] SULY LLAMAS MD Primary Care Provider [phone] Reason for Visit and Chief Complaint The Chief Complaint is: right shoulder pain Problems Includes: Problems addressed during this encounter and other active Problems All Visits Onset Date Resolved Date Provider Condition S tatus Neck Pain 10/10/2021 Kelechi Acharya MD Active Last Documented On 2 2:11PM ; ANTONY FRANKEL [facility] Joint Pain, Localized in the Right Shoulder 10/10/2021 Kelechi Acharya MD Active Last Documented On 2 2:04PM ; ANTONY FRANKEL [facility] Joint Pain, Localized in the Left Shoulder 01/17/2020 Kelechi Acharya MD Active Last Documented On 0 1:15PM ; ANTONY PELAYOS, [facility] Plan of Treatment The seroma still very mild but again there is no sign of infection here. I think he has some postoperative pain which I would expect with certain motions. This is reassuring x-ray singleton. We will see him back as scheduled he can come in at any time if there is any concern or changes - Last Documented On 07/02/2023 1:55PM ; [facility], [facility] Future Appointments Date Time Location Provi latasha Follow [facility] 09/10[facility]2023 11[facility] Arnie Ramirez PA-C Last Documented On 4 4:45PM ; [facility] Instructions to patient Lose weight Last Documented On 4 1:36PM ; [facility] Assessments Includes: Assessments from this encounter Findings - Overweight - Last Documented On 07/02/2023 1:55PM ; [facility], [facility] Right shoulder reverse arthroplasty - Last Documented On 07/02/2023 1:55PM ; [facility] Instructions Includes: Instructions from this encounter Instructions to patient Lose weight Last Documented On 4 1:36PM ; [facility], [facility] Medical Equipment - Implanted Devices Includes: Current Devices No Medical Equipment Recorded Medications Includes: Medications discussed during this encounter and other current Medications Current Medications (continue as prescribed) Eliquis 5 MG Oral Tablet 03/06/2023 Provider: PHYLLIS LLAMAS MD Diagnosis: Last Documented On 4 9:39AM By Sandra Pete ; [facility] metFORMIN HCl 500 MG Oral Tablet 04/24/2022 Provider : Diagnosis: Last Documented On 3 11:51AM By Joycelyn Deng ; [facility] Past Medications on file Benzoyl Peroxide Wash 5% External Liquid 05/12/2023 - 05/13/2023 Provider: True mcclelland MD Diagnosis: use as directed by Dr. Mas Last Documented On 4 12:51PM By Sandra Pete ; [facility] oxyCODONE HCl 5 MG Oral Tablet 08/19/2022 - 08/23/2022 Provider: Kelechi Acharya MD Diagnosis: 1 po q 4h 1 tablet by mouth every [address] op pain Last Documented On 3 9:55AM By Kelechi Acharya ; [facility] Ondansetron HCl 4 MG Oral Tablet 08/19/2022 - 09/03/19 Provider: Kelechi Acharya MD Diagnosis: 1-2 p o q 6-8h as needed for nausea Last Documented On 3 9:55AM By Kelechi Acharya ; [facility] traMADol HCl 50 MG Oral Tablet 08/19/2022 - 08/29/2022 Provider: Kelechi Acharya MD Diagnosis: 1-2 po q 4-6h PRN for breakthrough post op pain Last Documented On 3 9:55AM By Kelechi Acharya ; [facility], [facility] Lisinopril 10 MG Oral Tablet 04/24/2022 - 07/23/2022 Sriram wagoner: SULY LLAMAS MD Diagnosis: Last Documented On 3 11:50AM By Jyocelyn Deng ; [facility], [facility] amLODIPine Besylate 10 MG Or al Tablet 04/24/2022 - 07/23/2022 Provider: SULY Neumann Diagnosis: Last Documented On 3 11:51AM By Joycelyn Deng ; [facility], [facility] Ultram 50 MG Oral Tablet 10/10/2021 - 11/09/2021 Provi latasha: Kelechi Acharya MD Diagnosis: 1 every 6 hours Last Documented On 2 3:11PM By Kelechi Acharya ; [facility], [facility] Cyclobenzaprine HCl 5 MG Ora l Tablet 10/10/2021 - 11/09/2021 Provider: Kelechi Acharya MD Diagnosis: twice a day Last Documented On 2 3:26PM By Kelechi Acharya ; [facility], [facility] Voltaren 1% External Gel 06/05/2020 - 07/05/2020 Provi latasha: Kelechi Acharya MD Diagnosis: 4 gram three times a day Last Documented On 1 1:44PM By Nova Garcia ; [facility] Medications Administered Includes: Administered Medications from this encounter No Administered Medications Recorded Vital Signs Includes: Vital Signs from this encounter Vital Name 07/02/2023 01:36P Height (in) 69 Weight (lb) 236 Body Mass Index 34.9 Body Surface Area 2.2 Note: hdv Last Documented: On 07/02/2023 1:36PM ; ANTONY FRANKEL, [facility] Results Includes: Results discussed during this encounter No Results Recorded For Specified Dates History of Present Illness Includes: History of Present Illness from this encounter JOSUE Reddy is a 62 year old male. - Allergy list reviewed - Problem list reviewed - Medication list reviewed Social History Description Last Updated Tobacco non-user 04/24/2022 Last Documented On 4 1:36PM ; [facility], [facility] Not a smoker 10/15/2021 Last Documented On 4 1:36PM ; [facility], [facility] No recent change in diet 10/15/2021 Last Documented On 4 1:36PM ; [facility] Not a current smoker. 10/15/2021 Last Documented On 4 1:36PM ; [facility] Alcohol use 10/10/2021 Last Documented On 4 1:36PM ; [facility], [facility] Exercising regularly 10/10/2021 Last Documented On 4 1:36PM ; [facility], [facility] No caffeine use 10/10/2021 Last Documented On 4 1:36PM ; [facility], [facility] Not using drugs 10/10/2021 Last Documented On 4 1:36PM ; [facility] Non-smoker 10/10/2021 Last Documented On 4 1:36PM ; [facility], [facility] No recent change in diet 01/17/2020 Last Documented On 4 1:36PM ; [facility], [facility] Not a current smoker. 01/17/2020 Last Documented On 4 1:36PM ; [facility], [facility] Smoking Status Unknown Procedures and Surgical History Includes: Procedures from this encounter Procedures Code Diagnosis Performing Provider Service Location Service Date X-RAY EXAM OF SHOULDER 2-3 VIEWS (RIGHT) 08481 Presence of right artificial shoulder joint Ez Ramirez PA-C [facility] 07/02/2023 Last Documented On 4 2:28PM ; [facility], [facility] use of tobacco assessment performed 1000F Last Documented On 4 1:36PM ; [facility], [facility] review of medications documented 1160F Last Documented On 4 1:36PM ; [facility], [facility] Surgical History Last Updated History of hernia repair 10/15/2021 Last Documented On 4 1:36PM ; [facility], [facility] Medical History Includes: Medical History addressed during this encounter Description Last Updated History of diabetes mellitus 04/24/2022 Last Documented On 4 1:36PM ; [facility], [facility] History of heart disease 10/15/2021 Last Documented On 4 1:36PM ; [facility] History of Hypertension 10/15/2021 Last Documented On 4 1:36PM ; [facility] History of diverticulitis of colon 10/10 Last Documented On 4 1:36PM ; [facility] No recent immunization for flu 2 Last Documented On 4 1:36PM ; [facility] No recent immunization for pneumococcal pneumonia 10/10/2021 Last Documented On 4 1:36PM ; [facility], [facility] Hernia repair 01/17/2020 Last Documented On 4 1:36PM ; [facility] Hypertension 01/17/2020 Last Documented On 4 1:36PM ; [facility], [facility] Family History Includes: Family History addressed during this encounter Description Last Updated Diabetes mellitus 10/10/2021 Last Documented On 4 1:36PM ; [facility], [facility] Family history of heart disease 10/11/19 22 Last Documented On 4 1:36PM ; [facility], [facility] Family history of systemic hypertension 10/10/2021 Last Documented On 4 1:36PM ; [facility], [facility] Stroke / Seizures 01/17/2020 Last Documented On 4 1:36PM ; [facility], [facility] Review of Systems Includes: Review [...] Time Diagnosis Post Op Ez Ramirez PA-C [facility] B 4 1:17PM 1:49PM Overweight Insurance Includes: Active Insurance Policies Plan Name Member ID Group # Subscriber Relationship Effect katy Dates 1 - [employer] [facility] [id number] Jonh Reddy Self 3 - Unknown Clinical Notes Includes: Clinical Notes from this encounter * Progress note Date Encounter Last Documented by 07/02/2023 Post Op Last documented on 07/02/2023; 1:55 PM, Ez Ramirez PA-C; [facility], [facility] Active Problems & Conditions - [...] Care Team - SULY LLAMAS MD - SHIPPER RECEIVER
--- OUTSIDE RECORDS SUMMARY | 2023-08-24 17:55 | XMS_ITS | Clinical Summary ---
Author Name Unknown Address [address] [place] [address] Phone Organization [facility] Address [address] [place] [address] Phone Care Team Providers Care Capacity Planning Engineer Name Role Phone Patrizia CERDA, Kelechi Unavailable [phone] SULY LLAMAS MD Primary Care Provider [phone] Reason for Visit and Chief Complaint Yarsanism Health Problems Includes: Problems addressed during this encounter and other active Problems All Visits Onset Date Resolved Date Provider Condition S tatus Neck Pain 10/10/2021 Kelechi Acharya MD Active Last Documented On 2 2:11PM ; ANTONY FRANKEL, [facility] Joint Pain, Localized in the Right Shoulder 10/10/2021 Kelechi Acharya MD Active Last Documented On 2 2:04PM ; ANTONY FRANKEL, [facility] Joint Pain, Localized in the Left Shoulder 01/17/2020 Kelechi Acharya MD Active Last Documented On 0 1:15PM ; [facility], [facility] Plan of Treatment Future Appointments Date Time Location Provi latasha Follow Up 09/10/2023 11:15AM [facility] paedics [facility] B Ez Ramirez PA-C Last Documented On 4 4:45PM ; ANTONY PELAYOS, [facility] Assessments Includes: Assessments from this encounter No Assessments Recorded Medical Equipment - Implanted Devices Includes: Current Devices No Medical Equipment Recorded Medications Includes: Medications discussed during this encounter and other current Medications Current Medications (continue as prescribed) Eliquis 5 MG Oral Tablet 03/06/2023 Provider: PHYLLIS LLAMAS MD Diagnosis: Last Documented On 4 9:39AM By Sandra Brizuela [facility] metFORMIN HCl 500 MG Oral Tablet 04/24/2022 Provider : Diagnosis: Last Documented On 3 11:51AM By Joycelyn Deng ; [facility], [facility] Medications Administered Includes: Administered Medications from this encounter No Administered Medications Recorded Results Includes: Results discussed during this encounter No Results Recorded For Specified Dates History of Present Illness Includes: History of Present Illness from this encounter No History of Present Illness Recorded Social History No Social History Recorded - Smoking Status Unknown Procedures and Surgical History Includes: Procedures from this encounter Procedures Code Diagnosis Performing Provider Service Location Service Date RECONSTRUCT SHOULDER JOINT (RIGHT) 20430 Impingement syndrome of right shoulder, Primary osteoarthritis, right shoulder True Mas MD [facility] 05/29/2023 Last Documented On 4 9:34AM ; [facility] Medical History Includes: Medical History addressed during this encounter No Medical History Recorded Family History Includes: Family History addressed during this encounter No Family History Recorded Review of Systems Includes: Review of Systems from this encounter No Review of Systems Recorded Mental Status Includes: Mental Status from this encounter No Mental Status Recorded Functional Status Includes: Functional Status from this encounter No Functional Status Recorded Physical Exam Includes: Physical Exam from this encounter No Physical Exam Recorded Allergies Includes: Active Allergies No Known Allergies Encounters Encounter Provider Location Date Check-In Time Check-Out Time Diagnosis [facility] True Mas MD Surgery 05/29/2023 05/28/2023 2:52PM 11:59PM Insurance Includes: Active Insurance Policies Plan Name Member ID Group # Subscriber Relationship Effect katy Dates 1 - Aetna [facility] [id number] John Reddy Self 3 - Unknown Clinical Notes Includes: Clinical Notes from this encounter No Clinical Notes Recorded
--- OUTSIDE RECORDS SUMMARY | 2023-08-24 17:55 | XMS_ITS | Clinical Summary ---
Author Name Unknown Address [address] [place] [address] Phone Organization [facility] Address [address] [place] [address] Phone Care Team Providers Care Supervisor Rework Name Role Phone Patrizia CERDA, Kelechi Unavailable [phone] SULY LLAMAS MD Primary Care Provider [phone] Reason for Visit and Chief Complaint [Patient Encounter] Problems Includes: Problems addressed during this encounter and other active Problems All Visits Onset Date Resolved Date Provider Condition S tatus Neck Pain 10/10/2021 Kelechi Acharya MD Active Last Documented On 2 2:11PM ; ANTONY FRANKEL, [facility] Joint Pain, Localized in the Right Shoulder 10/10/2021 Kelechi Acharya MD Active Last Documented On 2 2:04PM ; ANTONY FRANKEL, [facility] Joint Pain, Localized in the Left Shoulder 01/17/2020 Kelechi Acharya MD Active Last Documented On 0 1:15PM ; [facility] Plan of Treatment Future Appointments Date Time Location Provi latasha Follow Up 09/10/2023 11:15AM [facility] paedics [facility] B Ez Ramirez PA-C Last Documented On 4 4:45PM ; [facility] Assessments Includes: Assessments from this encounter No Assessments Recorded Medical Equipment - Implanted Devices Includes: Current Devices No Medical Equipment Recorded Medications Includes: Medications discussed during this encounter and other current Medications Current Medications (continue as prescribed) Eliquis 5 MG Oral Tablet 03/06/2023 Provider: PHYLLIS LLMAAS MD Diagnosis: Last Documented On 4 9:39AM By Sandra FRANKEL [facility] metFORMIN HCl 500 MG Oral Tablet 04/24/2022 Provider : Diagnosis: Last Documented On 3 11:51AM By Joycelyn FRANKEL, [facility] Medications Administered Includes: Administered Medications from this encounter No Administered Medications Recorded Results Includes: Results discussed during this encounter No Results Recorded For Specified Dates History of Present Illness Includes: History of Present Illness from this encounter No History of Present Illness Recorded Social History No Social History Recorded - Smoking Status Unknown Medical History Includes: Medical History addressed during [...] Location Date Check-In Time Check-Out Time Diagnosis [Patient Encounter] True Mas MD 05/18/2023 9:41AM 11:59PM Insurance Includes: Active Insurance Policies Plan Name Member ID Group # Subscriber Relationship Effect katy Dates 1 - [employer]na [facility] [id number] John Reddy Khoa 3 - Unknown Clinical Notes Includes: Clinical Notes from this encounter No Clinical Notes Recorded
--- OUTSIDE RECORDS SUMMARY | 2023-08-24 17:55 | XMS_ITS | Clinical Summary ---
Author Name Unknown Address [address] [place] [address] Phone Organization [facility] , [facility] Address [address] [place] [address] Phone Care Team Providers Care Bleacher [employer] Name Role Phone Patrizia CERDA, Kelechi Unavailable [phone] SULY LLAMAS MD Primary Care Provider [phone] Reason for Visit and Chief Complaint The Chief Complaint is: right shoulder pain Problems Includes: Problems addressed during this encounter and other active Problems All Visits Onset Date Resolved Date Provider Condition S tatus Neck Pain 10/10/2021 Kelechi Acharya MD Active Last Documented On 2 2:11PM ; ANTONY FRANKEL [facility] Joint Pain, Localized in the Right Shoulder 10/10/2021 Kelechi Acharya MD Active Last Documented On 2 2:04PM ; ANTONY FRANKEL [facility] Joint Pain, Localized in the Left Shoulder 01/17/2020 Kelechi Acharya MD Active Last Documented On 0 1:15PM ; ANTONY FRANKEL, [facility] Plan of Treatment We will initiate home exercise program he condition to continue his sling. He was educated on wound care. He will follow up as scheduled. He understands his restrictions - Last Documented On 06/22/2023 12:35PM ; ANTONY PELAYOS, [facility] Future Appointments Date Time Location Provi latasha Follow Up 09/10/2023 11:15AM [facility] Ez Ramirez PA-C Last Documented On 4 4:45PM ; ANTONY FRANKEL, [facility] Instructions to patient Lose weight Last Documented On 4 11:49AM ; [facility] Assessments Includes: Assessments from this encounter Findings - Overweight - Last Documented On 06/22/2023 12:35PM ; [facility] Shoulder arthroplasty with resolved seroma - Last Documented On 06/22/2023 12:35PM ; [facility] Instructions Includes: Instructions from this encounter Instructions to patient Lose weight Last Documented On 4 11:49AM ; [facility] Medical Equipment - Implanted Devices Includes: Current Devices No Medical Equipment Recorded Medications Includes: Medications discussed during this encounter and other current Medications Current Medications (continue as prescribed) Eliquis 5 MG Oral Tablet 03/06/2023 Provider: PHYLLIS LLAMAS MD Diagnosis: Last Documented On 4 9:39AM By Sandra Pete ; [facility] metFORMIN HCl 500 MG Oral Tablet 04/24/2022 Provider : Diagnosis: Last Documented On 3 11:51AM By Joycelyn Deng ; [facility] Past Medications on file Benzoyl Peroxide Wash 5% External Liquid 05/12/2023 - 05/13/2023 Provider: True mcclelland MD Diagnosis: use as directed by Dr. Mas Last Documented On 4 12:51PM By Sandra Pete ; [facility] oxyCODONE HCl 5 MG Oral Tablet 08/19/2022 - 08/23/2022 Provider: Kelechi Acharya MD Diagnosis: 1 po q 4h 1 tablet by mouth every [address] op pain Last Documented On 3 9:55AM By Kelechi Acharya ; [facility] Ondansetron HCl 4 MG Oral Tablet 08/19/2022 - 09/03/19 Provider: Kelechi Acharya MD Diagnosis: 1-2 p o q 6-8h as needed for nausea Last Documented On 3 9:55AM By Kelechi Acharya ; [facility] traMADol HCl 50 MG Oral Tablet 08/19/2022 - 08/29/2022 Provider: Kelechi Acharya MD Diagnosis: 1-2 po q 4-6h PRN for breakthrough post op pain Last Documented On 3 9:55AM By Kelechi Acharya ; [facility], [facility] Lisinopril 10 MG Oral Tablet 04/24/2022 - 07/23/2022 Sriram wagoner: SULY LLAMAS MD Diagnosis: Last Documented On 3 11:50AM By Joycelyn Deng ; [facility], [facility] amLODIPine Besylate 10 MG Or al Tablet 04/24/2022 - 07/23/2022 Provider: SULY Neumann Diagnosis: Last Documented On 3 11:51AM By Joycelyn Deng ; [facility], [facility] Ultram 50 MG Oral Tablet 10/10/2021 - 11/09/2021 Provi latasha: Kelechi Acharya MD Diagnosis: 1 every 6 hours Last Documented On 2 3:11PM By Kelechi Acharya ; [facility], [facility] Cyclobenzaprine HCl 5 MG Ora l Tablet 10/10/2021 - 11/09/2021 Provider: Kelechi Acharya MD Diagnosis: twice a day Last Documented On 2 3:26PM By Kelechi Acharya ; [facility], [facility] Voltaren 1% External Gel 06/05/2020 - 07/05/2020 Provi latasha: Kelechi Acharya MD Diagnosis: 4 gram three times a day Last Documented On 1 1:44PM By Nova Garcia ; [facility], [facility] Medications Administered Includes: Administered Medications from this encounter No Administered Medications Recorded Vital Signs Includes: Vital Signs from this encounter Vital Name 06/19/2023 11:50A Height (in) 69 Weight (lb) 236 Body Mass Index 34.9 Body Surface Area 2.2 Note: hdv Last Documented: On 06/19/2023 11:50A M ; [facility], [facility] Results Includes: Results discussed during this encounter No Results Recorded For Specified Dates History of Present Illness Includes: History of Present Illness from this encounter JOSUE Reddy is a 62 year old male. - Allergy list reviewed - Problem list reviewed - Medication list reviewed Social History Description Last Updated Tobacco non-user 04/24/2022 Last Documented On 4 11:49AM ; [facility] Not a smoker 10/15/2021 Last Documented On 4 11:49AM ; [facility], [facility] No recent change in diet 10/15/2021 Last Documented On 4 11:49AM ; [facility], [facility] Not a current smoker. 10/15/2021 Last Documented On 4 11:49AM ; [facility] Alcohol use 10/10/2021 Last Documented On 4 11:49AM ; [facility], [facility] Exercising regularly 10/10/2021 Last Documented On 4 11:49AM ; [facility], [facility] No caffeine use 10/10/2021 Last Documented On 4 11:49AM ; [facility], [facility] Not using drugs 10/10/2021 Last Documented On 4 11:49AM ; [facility] Non-smoker 10/10/2021 Last Documented On 4 11:49AM ; [facility], [facility] No recent change in diet 01/17/2020 Last Documented On 4 11:49AM ; [facility], [facility] Not a current smoker. 01/17/2020 Last Documented On 4 11:49AM ; [facility], [facility] Smoking Status Unknown Procedures and Surgical History Includes: Procedures from this encounter Procedures Code Diagnosis Performing Provider Service Location Service Date X-RAY EXAM OF SHOULDER 2-3 VIEWS (RIGHT) 48486 Presence of right artificial shoulder joint Ez Ramirez PA-C [facility] B 06/19/2023 Last Documented On 4 12:32PM ; [facility], [facility] use of tobacco assessment performed 1000F Last Documented On 4 11:49AM ; [facility], [facility] review of medications documented 1160F Last Documented On 4 11:49AM ; [facility], [facility] Surgical History Last Updated History of hernia repair 10/15/2021 Last Documented On 4 11:49AM ; [facility], [facility] Medical History Includes: Medical History addressed during this encounter Description Last Updated History of diabetes mellitus 04/24/2022 Last Documented On 4 11:49AM ; [facility], [facility] History of heart disease 10/15/2021 Last Documented On 4 11:49AM ; [facility] History of Hypertension 10/15/2021 Last Documented On 4 11:49AM ; [facility], [facility] History of diverticulitis of colon 10/10 Last Documented On 4 11:49AM ; [facility], [facility] No recent immunization for flu 2 Last Documented On 4 11:49AM ; [facility], [facility] No recent immunization for pneumococcal pneumonia 10/10/2021 Last Documented On 4 11:49AM ; [facility], [facility] Hernia repair 01/17/2020 Last Documented On 4 11:49AM ; [facility], [facility] Hypertension 01/17/2020 Last Documented On 4 11:49AM ; [facility], [facility] Family History Includes: Family History addressed during this encounter Description Last Updated Diabetes mellitus 10/10/2021 Last Documented On 4 11:49AM ; [facility], [facility] Family history of heart disease 10/11/19 22 Last Documented On 4 11:49AM ; [facility], [facility] Family history of systemic hypertension 10/10/2021 Last Documented On 4 11:49AM ; [facility], [facility] Stroke / Seizures 01/17/2020 Last Documented On 4 11:49AM ; [facility], [facility] Review of Systems Includes: [...] Time Diagnosis Post Op Ez Ramirez PA-C [facility] B 4 11:46AM 11:50AM Overweight Insurance Includes: Active Insurance Policies Plan Name Member ID Group # Subscriber Relationship Effect katy Dates 1 - [employer] [facility] [id number] John Reddy Self 3 - Unknown Clinical Notes Includes: Clinical Notes from this encounter * Progress note Date Encounter Last Documented by 06/19/2023 Post Op Last documented on 06/22/2023; 12:35 PM, Ez Ramirez PA-C; [facility], [facility] Active Problems & Conditions [...] Care Team - SULY LLAMAS MD - INTERACTIVE MEDIA PROJECT MANAGER
[2023-08-24 19:37] LABS: Hemoglobin A1C 6.8 % (4.0-6.0)
[2023-08-24 19:42] LABS: Alanine Aminotransferase 45 U/L (12-78); Albumin Level 4.4 g/dl (3.5-5.0); Albumin/Globulin Ratio 1.4 (1.1-1.8); Alkaline Phosphatase 102 U/L (38-126); Anion Gap 18.1 mEq/L (5-15); Aspartate Amino Transferase 43 U/L (17-59); Bilirubin,Total 0.6 mg/dl (0.2-1.3); Blood Urea Nitrogen 22 mg/dl (9-20); Calcium 9.4 mg/dl (8.4-10.2); Carbon Dioxide 25 mmol/L (22.0-30.0); Chloride 96 mmol/L (98-107); Chol/HDL Ratio 5.5 (1-3.5); Cholesterol 209 mg/dl (140-200); Estimated Glomerular Filt Rate 86 ml/min (>60); GFR (African American) 103 ML/MIN (>60); Globulin 3.2 g/dL (1.3-3.2); Glucose 111 mg/dl (74-100); HDL Cholesterol 38 mg/dl (40-60); Potassium 5.1 mmoL/L (3.5-5.1); Sodium 134 mmol/L (136-145); Total Protein,Serum 7.6 g/dl (6.3-8.2)
[2023-08-24 19:46] LABS: Triglycerides 476 mg/dl (30-150)
[2023-08-24 19:52] LABS: Direct LDL Cholesterol 85.83 mg/dL (100-129)
== END 2023-08-24 23:59 | disposition home or self-care (01) ==
LOC: LAB.DROPOF 17:52
PROVIDERS: PCP Internal Medicine; Visit Provider Internal Medicine
DX: E11.9 Type 2 diabetes mellitus without complications (principal); I10 Essential (primary) hypertension; E78.5 Hyperlipidemia, unspecified; K57.30 Diverticulosis of large intestine without perforation or abscess without bleeding; Z79.84 Long term (current) use of oral hypoglycemic drugs
CPT/HCPCS: 80053; 80061; 83036

== ENCOUNTER 2023-09-04 11:47 | Outpatient (POV) | payer OTHER, SELFPAY ==
[2023-09-04 12:30] VITALS: BP 150/106; PULSE 88; RESP 16; O2SAT 97; BMI 35.4
--- NOTE | 2023-09-04 12:44 | A.OFFVIS_ITS ---
[facility] Pain Management SOAP Note Subjective:: Patient is a pleasant 62-year-old male who presents today for follow-up. Today he rates his pain a 10 out of 10. Patient denies any fall or injury. He does state that he is having extreme pain in his bilateral buttocks area. He states the pain is a achy, throbbing sensation that is worse with prolonged positioning such as sitting. He does state the pain is interfering with his ability perform activities of daily living such as cooking and cleaning. Patient is prescribed compounded cream from our office and states it does help however it does not work as well as it initially did and is asking if there is any cream stronger. His Howard has been reviewed and is appropriate. Review of Systems: General: No recent weight changes, no fever, no sleep disturbances Respiratory: No cough, no shortness of air, no recurring pulmonary infections Cardiovascular/peripheral vascular: No chest pain, no palpitations, no edema, no shortness of breath Gastrointestinal: No new onset incontinence, normal bowel movements reported Genitourinary: No new onset incontinence Musculoskeletal: Bilateral buttocks pain Psychiatric: [Normal mood/affect] Neurological: [Denies weakness in extremities], [denies balance issues] Objective:: Physical Exam: General: Alert and oriented x3, no acute distress, pleasant and cooperative Lungs: Respirations even and unlabored, symmetrical chest expansion Eyes: PERRL Musculoskeletal: Flexion and extension of lumbar [spine] somewhat guarded secondary to pain, [antalgic gait noted] point tenderness along bilateral piriformis muscle Neurological: Speech clear, no gross sensory deficit Assessment:: Degenerative disc disease of lumbar spine with lumbar radiculopathy symptoms, bilateral piriformis syndrome Plan:: Patient is experiencing significant pain throughout his buttocks with point tenderness along his bilateral piriformis muscle. I have discussed with the patient that he may benefit from bilateral piriformis injection. Risk and benefits were discussed with patient and he would like to proceed forward with this plan of care. I will send in refills on his compounded cream. Patient will be scheduled for bilateral piriformis muscle injections. Patient has tried and failed conservative therapy including continued at home exercising and stretching for the last 6 weeks. Patient does have a cardiology history and is on blood thinner. Patient has been instructed to contact the clinic with any concerns before the next appointment. Dr. Montemayor has reviewed this note and agrees with this plan of c are. This note was dictated using voice recognition software and make contain errors or omissions. [facility] Disclaimer: The information contained in this section may have been updated after the patient was seen, as this information can be updated by other users. Medical History Vertigo History of whiplash with residual dizziness, episodic headache. Dizziness of unknown cause Sphenoid sinusitis Already seen and evaluated by ENT Maxillary sinusitis Rotator cuff arthropathy of right shoulder H/O tuberculosis Peyronie's disease HLD (hyperlipidemia) HTN (hypertension) Surgical History H/O hernia repair Family History Other Diabetes Heart attack Hyperlipidemia Hypertension Stroke Tuberculosis Social History Smoking Status: Never smoker alcohol intake: current alcohol intake frequency: a few times a week substance use type: denies use current occupational status: other Travel in the last 8 weeks: None household members: significant other housing: apartment marital status:
== END 2023-09-04 23:59 | disposition home or self-care (01) ==
LOC: SC.PAIN 11:47
PROVIDERS: PCP Internal Medicine; Visit Provider Nurse Practitioner Family
DX: M51.16 Intervertebral disc disorders with radiculopathy, lumbar region (principal); G57.03 Lesion of sciatic nerve, bilateral lower limbs
CPT/HCPCS: 99212; G0463

== ENCOUNTER 2023-09-29 11:15 | Day surgery (SDC) | payer OTHER, SELFPAY ==
[2023-09-29 11:34] VITALS: BP 122/81; PULSE 85; RESP 18; O2SAT 95; BMI 34.7
[2023-09-29] MEDS: IOPAMIDOL-200 (41%);10ML VIAL 10 ML IV (11:50)
[2023-09-29 11:53] VITALS: BP 141/88; PULSE 86; RESP 18; O2SAT 95
[2023-09-29] MEDS: LIDOCAINE 1% 5ML PF VIAL 5 ML (11:53)
[2023-09-29] MEDS: BUPIVACAINE 0.25% 10ML INJ 25 MG IJ (11:53)
[2023-09-29 11:54] VITALS: BP 141/88; PULSE 87; RESP 18; O2SAT 95
--- NOTE | 2023-09-29 11:58 | EXP.PAIN.PRO ---
Procedure Date: 09/29/23 Time: 11:30 Anesthesiologist:: Mukesh Pemberton CRNA Complications:: None Pre-procedure Diagnosis:: Right piriformis syndrome. Post-procedure Diagnosis:: Same. Indications for Procedure:: Patient is a very pleasant 63-year-old male comes our clinic today for a right piriformis injection. He has right buttock pain he describes as constant, dull, aching. He rates the pain 6/10. Procedure Details:: Details of the procedure explained to the patient. The patient taken procedure and placed in the prone position on fluoroscopy table. The right buttock was cleansed using chlorhexidine's cleansing solution. Using a 22-gauge 3-1/2 inch spinal needle the right piriformis muscle was accessed with ease. Needle position was confirmed using contrast dye 0.5 mL and noted to the lateral spread. After negative aspiration 3 cc of 1% lidocaine +3 cc of 0.25% Marcaine and 40 mg of Depo-Medrol was injected. Patient tolerated procedure without difficulty. No complications. Plan and Disposition:: Patient was discharged without incident.
[2023-09-29 11:59] VITALS: BP 141/89; PULSE 85; RESP 16; O2SAT 95
== END 2023-09-29 12:02 | disposition home or self-care (01) ==
PROVIDERS: PCP Internal Medicine; Visit Provider Nurse Anesthetist, Certified Registered
DX: G57.01 Lesion of sciatic nerve, right lower limb (principal); M79.18 Myalgia, other site
CPT/HCPCS: 20552; 77002; J1010; Q9966

== ENCOUNTER 2023-11-12 15:27 | Outpatient (POV) | payer OTHER, SELFPAY ==
[2023-11-12 15:34] VITALS: BP 125/84; PULSE 90; RESP 16; O2SAT 96; BMI 34.5
--- NOTE | 2023-11-12 16:02 | A.OFFVIS_ITS ---
[facility] Disclaimer: The information contained in this section may have been updated after the patient was seen, as this information can be updated by other users. Medical History Vertigo History of whiplash with residual dizziness, episodic headache. Dizziness of unknown cause Sphenoid sinusitis Already seen and evaluated by ENT Maxillary sinusitis Rotator cuff arthropathy of right shoulder H/O tuberculosis Peyronie's disease HLD (hyperlipidemia) HTN (hypertension) Surgical History H/O hernia repair Family History Other Diabetes Heart attack Hyperlipidemia Hypertension Stroke Tuberculosis Social History Smoking Status: Never smoker alcohol intake: current alcohol intake frequency: a few times a week substance use type: denies use current occupational status: retired Travel in the last 8 weeks: None household members: significant other housing: apartment marital status: PM Subjective & Objective Subjective Subjective:: Patient is a pleasant 63-year-old male who presents today for follow-up of right piriformis injection on 09/29/2023. Today he rates his pain a 9 out of 10. Patient denies any new trauma or injury. He does state that he had about 20% relief following this injection however only lasted temporary and that he is back to his baseline today. Patient does state the pain is constant with activity or walking. He does state that this is in both right and left buttocks areas along 1 spot. He states that this has been going on for some time and just seems like nothing is improving it. Patient does state that previously the compounded cream he got significantly helped however over time it seemed to get less and less effective. Patient does state that he is scheduled for a left total shoulder reversal on the of this month. His Howard has been reviewed and is appropriate. Review of Systems: General: No recent weight changes, no fever, no sleep disturbances Respiratory: No cough, no shortness of air, no recurring pulmonary infections Cardiovascular/peripheral vascular: No chest pain, no palpitations, no edema, no shortness of breath Gastrointestinal: No new onset incontinence, normal bowel movements reported Genitourinary: No new onset incontinence Musculoskeletal: Buttocks pain Psychiatric: [Normal mood/affect] Neurological: [Denies weakness in extremities], [denies balance issues] Pain at rest (0-10 scale): 9 Objective Objective:: Physical Exam: General: Alert and oriented x3, no acute distress, pleasant and cooperative Lungs: Respirations even and unlabored, symmetrical chest expansion Eyes: PERRL Musculoskeletal: Flexion and extension of lumbar [spine] somewhat guarded secondary to pain, [antalgic gait noted] Neurological: Speech clear, no gross sensory deficit Has patient had previous pain injection?: Yes Percent improvement in pain since last injection: 20% Conservative treatment options previously tried: Home exercise plan Length of treatment: Longer than 6 weeks Meds Home Medications and Allergies Home Medications ?Medication ?Instructions ?Recorded ?Confirmed ?Type amlodipine 10 mg tablet 10 mg PO DAILY BLOOD PRESSURE 03/13/20 11/12/23 History dapagliflozin propanediol 10 mg 10 mg PO DIRECTED Diabetes 09/05/22 11/12/23 History tablet (Farxiga) lisinopril 20 mg tablet 20 mg PO DAILY BLOOD PRESSURE 09/29/22 11/12/23 History meclizine 25 mg chewable tablet 25 mg PO TID DIZZINESS 12/17/22 11/12/23 History apixaban 2.5 mg tablet 2.5 mg PO BID #60 tabs 09/23/23 11/12/23 Rx atorvastatin 40 mg tablet 40 mg PO HS #90 tabs 09/23/23 11/12/23 Rx metformin 1,000 mg tablet See Rx Instructions .Route 10/16/23 11/12/23 Rx .COMPLEX #180 tabs omega-3 acid ethyl esters 1 gram See Rx Instructions .Route 10/16/23 11/12/23 Rx capsule .COMPLEX #180 caps New Prescriptions to Start Prescriptions: Allergies Allergy/AdvReac Type Severity Reaction Status Date / Time No Known Allergies Allergy Verified 09/29/23 11:34 Assessment and Plan *Assessment and plan (1) Bilateral piriformis syndrome: Status: Acute Category: Medical Code(s): G57.03 - Lesion of sciatic nerve, bilateral lower limbs Plan Patient continues to have significant pain in and around his buttocks and tailbone area that is worse with increased activity. I did discuss with the patient that we will send in a 2-week dose of baclofen 10 mg 3 times daily. Patient will return to clinic in 2 weeks for reevaluation of symptoms and plan of care. If patient continues to have this pain we may look at doing a caudal epidural in the future. Patient has been instructed to contact the clinic with any concerns before the next appointment. Dr. Montemayor has reviewed this note and agrees with this plan of care. This note was dictated using voice recognition software and make contain errors or omissions. All injections are used with Lidocaine or Bupivacaine and Depo Medrol.
== END 2023-11-12 23:59 | disposition home or self-care (01) ==
PROVIDERS: PCP Internal Medicine; Visit Provider Nurse Practitioner Family
DX: G57.03 Lesion of sciatic nerve, bilateral lower limbs (principal); Z79.899 Other long term (current) drug therapy
CPT/HCPCS: 99212; G0463

== ENCOUNTER 2023-11-30 11:17 | Outpatient (POV) | payer OTHER, SELFPAY ==
[2023-11-30 12:00] VITALS: BP 139/83; PULSE 90; RESP 18; O2SAT 95; BMI 35.1
--- NOTE | 2023-11-30 12:01 | A.OFFVIS_ITS ---
[facility] Disclaimer: The information contained in this section may have been updated after the patient was seen, as this information can be updated by other users. Medical History (Updated 11/24/23 @ 14:35 by Igor Khalil MD) Vertigo Dizziness of unknown cause Sphenoid sinusitis Maxillary sinusitis Rotator cuff arthropathy of right shoulder H/O tuberculosis Peyronie's disease HLD (hyperlipidemia) HTN (hypertension) Surgical History H/O hernia repair Family History Other Diabetes Heart attack Hyperlipidemia Hypertension Stroke Tuberculosis Social History Smoking Status: Never smoker alcohol intake: current alcohol intake frequency: a few times a week substance use type: denies use current occupational status: retired Travel in the last 8 weeks: None household members: significant other housing: apartment marital status: PM Subjective & Objective Subjective Subjective:: Patient is a pleasant 63-year-old male who presents today for follow-up. Today he rates his pain a 10 out of 10. Patient denies any new trauma or injury. He does state that he continues to have worsening pain in his low back and legs. He states that he can even walk to the back of the grocery store without having significant issues and having to stop and take a break. Patient does state that he is scheduled for a shoulder replacement on the of this month from an outside provider. His Howard has been reviewed and is appropriate. Patient was tried on baclofen however he states this made no additional improvement. Review of Systems: General: No recent weight changes, no fever, no sleep disturbances Respiratory: No cough, no shortness of air, no recurring pulmonary infections Cardiovascular/peripheral vascular: No chest pain, no palpitations, no edema, no shortness of breath Gastrointestinal: No new onset incontinence, normal bowel movements reported Genitourinary: No new onset incontinence Musculoskeletal: Low back pain, leg pain Psychiatric: [Normal mood/affect] Neurological: [Denies weakness in extremities], [denies balance issues] Pain at rest (0-10 scale): 10 Objective Objective:: Physical Exam: General: Alert and oriented x3, no acute distress, pleasant and cooperative Lungs: Respirations even and unlabored, symmetrical chest expansion Eyes: PERRL Musculoskeletal: Flexion and extension of lumbar [spine] somewhat guarded secondary to pain, [antalgic gait noted] Neurological: Speech clear, no gross sensory deficit Has patient had previous pain injection?: No Conservative treatment options previously tried: Home exercise plan Length of treatment: Longer than 6 weeks Meds Home Medications and Allergies Home Medications ?Medication ?Instructions ?Recorded ?Confirmed ?Type amlodipine 10 mg tablet 10 mg PO DAILY BLOOD PRESSURE 03/13/20 11/24/23 History dapagliflozin propanediol 10 mg 10 mg PO DIRECTED Diabetes 09/05/22 11/24/23 History tablet (Farxiga) lisinopril 20 mg tablet 20 mg PO DAILY BLOOD PRESSURE 09/29/22 11/24/23 History apixaban 2.5 mg tablet 2.5 mg PO BID #60 tabs 09/23/23 11/24/23 Rx atorvastatin 40 mg tablet 40 mg PO HS #90 tabs 09/23/23 11/24/23 Rx metformin 1,000 mg tablet See Rx Instructions .Route 10/16/23 11/24/23 Rx .COMPLEX #180 tabs omega-3 acid ethyl esters 1 gram See Rx Instructions .Route 10/16/23 11/24/23 Rx capsule .COMPLEX #180 caps baclofen 10 mg tablet 10 mg PO TID #42 tabs 11/12/23 11/24/23 Rx meclizine 25 mg chewable tablet 25 mg PO TID PRN DIZZINESS 11/24/23 11/24/23 History New Prescriptions to Start Prescriptions: Allergies Allergy/AdvReac Type Severity Reaction Status Date / Time No Known Allergies Allergy Verified 11/24/23 14:11 Assessment and Plan *Assessment and plan (1) Degenerative disc disease, lumbar: Status: Acute Category: Medical Code(s): M51.36 - Other intervertebral disc degeneration, lumbar region (2) Lumbar radiculopathy: Status: Acute Category: Medical Code(s): M54.16 - Radiculopathy, lumbar region Plan I did discuss with the patient that in future he may benefit from a lumbar epidural steroid injection of L5-S1 under fluoroscopy. Patient is scheduled for joint replacement coming up and I have counseled him that we will have to wait until after this procedure is done. Patient is on blood thinners written by Dr. Khalil's office. Patient will return to clinic in 1 month for reevaluation of symptoms and plan of care. Patient has been instructed to contact the clinic with any concerns before the next appointment. Dr. Montemayor has reviewed this note and agrees with this plan of care. This note was dictated using voice recognition software and make contain errors or omissions. All injections are used with Lidocaine or Bupivacaine and Depo Medrol.
== END 2023-11-30 23:59 | disposition home or self-care (01) ==
LOC: SC.PAIN 11:18
PROVIDERS: PCP Internal Medicine; Visit Provider Nurse Practitioner Family
DX: M51.16 Intervertebral disc disorders with radiculopathy, lumbar region (principal); Z79.899 Other long term (current) drug therapy
CPT/HCPCS: 99212; G0463

== ENCOUNTER 2024-03-14 11:50 | Outpatient (CLI) | payer MEDICARE, SELFPAY ==
[2024-03-14 17:16] LABS: Basophils # 0.1 K/mm3 (0-0.2); Basophils % 0.8 % (0.1-2.0); Eosinophils # 0.4 K/mm3 (0.0-0.4); Eosinophils % 4.9 % (0.1-12.0); Hematocrit 52.1 % (42.0-52.0); Hemoglobin 17.2 g/dL (14.1-18.0); Lymphocytes # 1.7 K/mm3 (0.7-4.5); Lymphocytes % 24.2 % (10-50); Mean Corpuscular Hemoglobin 30.7 pg (27.0-31.2); Mean Platelet Volume 9.3 fl (7.4-10.4); Monocytes # 0.8 K/mm3 (0.1-1.0); Monocytes % 11.7 % (1.7-9.3); Neutrophils # 4.2 K/mm3 (1.8-7.8); Neutrophils % 58.5 % (37.0-80.0); Platelet Count 308 K/mm3 (142-424); Red Cell Distribution Width 12.9 % (11.5-17.5); White Blood Count 7.2 K/mm3 (4.8-10.8)
[2024-03-14 18:08] LABS: Albumin Level 4.5 g/dl (3.5-5.0); Chloride 99 mmol/L (98-107); Potassium 4.8 mmoL/L (3.5-5.1); Sodium 137 mmol/L (136-145)
[2024-03-14 18:10] LABS: Alanine Aminotransferase 51 U/L (12-78); Anion Gap 16.8 mEq/L (5-15); Aspartate Amino Transferase 49 U/L (17-59); Blood Urea Nitrogen 26 mg/dl (9-20); Carbon Dioxide 26 mmol/L (22.0-30.0); Estimated Glomerular Filt Rate 85 ml/min (>60); GFR (African American) 103 ML/MIN (>60)
[2024-03-14 18:11] LABS: Albumin/Globulin Ratio 1.5 (1.1-1.8); Alkaline Phosphatase 83 U/L (38-126); Bilirubin,Total 0.7 mg/dl (0.2-1.3); Calcium 9.3 mg/dl (8.4-10.2); Chol/HDL Ratio 5.9 (1-3.5); Cholesterol 229 mg/dl (140-200); Glucose 101 mg/dl (74-100); HDL Cholesterol 39 mg/dl (40-60); Total Protein,Serum 7.5 g/dl (6.3-8.2); Triglycerides 365 mg/dl (30-150); VLDL Cholesterol 73 mg/dL (0-40)
[2024-03-14 18:22] LABS: Direct LDL Cholesterol 100.96 mg/dL (100-129)
[2024-03-14 18:37] LABS: Hemoglobin A1C 6.9 % (4.0-6.0)
[2024-03-14 18:42] LABS: Prostate Specific Ag Screen 0.9 ng/ml (0.0-4.0)
[2024-03-14 18:55] LABS: Creatinine,Urine Random 60 mg/dL (Not Estab.)
[2024-03-14 18:56] LABS: Microalbumin/Creatinine Ratio 143.6
== END 2024-03-14 23:59 | disposition home or self-care (01) ==
LOC: LAB.DROPOF 03-15 11:55
PROVIDERS: PCP Internal Medicine; Visit Provider Internal Medicine
DX: Z12.5 Encounter for screening for malignant neoplasm of prostate (principal); I10 Essential (primary) hypertension; E78.5 Hyperlipidemia, unspecified; E11.40 Type 2 diabetes mellitus with diabetic neuropathy, unspecified; Z79.84 Long term (current) use of oral hypoglycemic drugs
CPT/HCPCS: 80053; 80061; 82043; 82570; 83036; 85025; G0103

== ENCOUNTER 2024-09-28 14:10 | Outpatient (CLI) | payer MEDICARE, OTHER, SELFPAY ==
[2024-09-28 17:23] LABS: Basophils % 0.3 % (0.1-2.0); Eosinophils # 0.3 Kmm3 (0.0-0.4); Eosinophils % 5.3 % (0.1-12.0); Hematocrit 47.1 % (42.0-52.0); Hemoglobin 16.1 g/dL (14.1-18.0); Immature Granulocytes # 0.04 10^3uL; Immature Granulocytes % 0.6 %; Lymphocytes # 1.5 K/mm3 (0.7-4.5); Lymphocytes % 24.2 % (10-50); Mean Corpuscular HGB Conc 34.2 g/dL (31.8-35.4); Mean Corpuscular Volume 90.6 fl (80-94); Mean Platelet Volume 10.6 fl (7.4-10.4); Monocytes % 15.1 % (1.7-9.3); Neutrophils # 3.4 K/mm3 (1.8-7.8); Neutrophils % 54.5 % (37.0-80.0); Nucleated Red Blood Cells # 0 10^3/uL; Nucleated Red Blood Cells % 0 %; Platelet Count 360 K/mm3 (142-424); Red Cell Distribution Width 12.9 % (11.5-17.5); Red Cell Distribution Width-SD 42.6 fL; White Blood Count 6.3 K/mm3 (4.8-10.8)
[2024-09-28 19:23] LABS: Hemoglobin A1C 6.2 % (4.0-6.0)
[2024-09-28 19:24] LABS: Alanine Aminotransferase 44 U/L (12-78); Albumin Level 4.6 g/dl (3.5-5.0); Albumin/Globulin Ratio 1.5 (1.1-1.8); Alkaline Phosphatase 73 U/L (38-126); Anion Gap 13.3 mEq/L (5-15); Aspartate Amino Transferase 42 U/L (17-59); Bilirubin,Total 0.4 mg/dl (0.2-1.3); Blood Urea Nitrogen 20 mg/dl (9-20); Calcium 9.9 mg/dl (8.4-10.2); Carbon Dioxide 27 mmol/L (22.0-30.0); Chloride 100 mmol/L (98-107); Chol/HDL Ratio 4.3 (1-3.5); Cholesterol 188 mg/dl (140-200); Estimated Glomerular Filt Rate 85 ml/min (>60); GFR (African American) 103 ML/MIN (>60); Globulin 3.1 g/dL (1.3-3.2); Glucose 109 mg/dl (74-100); HDL Cholesterol 44 mg/dl (40-60); Potassium 5.3 mmoL/L (3.5-5.1); Sodium 135 mmol/L (136-145); Total Protein,Serum 7.7 g/dl (6.3-8.2); Triglycerides 192 mg/dl (30-150); VLDL Cholesterol 38 mg/dL (0-40)
[2024-09-28 19:34] LABS: Direct LDL Cholesterol 94.44 mg/dL (100-129)
--- OUTSIDE RECORDS SUMMARY | 2024-09-29 09:59 | XMS_ITS | Clinical Summary ---
Author Organization [employer] Address [address] [place] [address] Care Team Providers Care Office Administrative Assistant Name Role Phone Igor Khalil MD Primary Care Provider [phone] Allergies No known active allergies Medications amLODIPine (NORVASC) 10 MG tablet Take 1 tablet (10 mg total) by mouth in the morning. 05/23/2022 Active lisinopriL (PRINIVIL,ZESTR IL) 20 MG tablet Take 1 tablet (20 mg total) by mouth in the morning. 05/16/2022 Active metFORMIN (GLUCOPHAGE) 1000 MG tablet Take 1 tablet (1,000 mg total) by mouth in the morning and 1 tablet (1,000 mg total) before bedtime. 05/23/2022 Active Farxiga 10 mg tablet Take 1 tablet (10 mg total) by mouth in the morning. 08/04/2022 Active meclizine (ANTIVERT) 25 MG tablet Take 1 tablet (25 mg total) by mouth in the morning and 1 tablet (25 mg total) at noon and 1 tablet (25 mg total) in the evening. 07/11/2022 Active atorvastatin (LIPITOR) 20 MG tablet Take 1 tablet (20 mg total) by mouth in the morning. 05/16/2022 Active multivitamin capsule Take 1 capsule by mouth in the morning. 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 Social History Tobacco Use Types Packs/Day Years Used Date Smoking Tobacco: Never Smokeless Tobacco: Never Tobacco Cessation:Counseling Given: Not Answered Alcohol Use Standard Drinks/Week Comments Yes 0 (1 standard drink = 0.6 oz pur e alcohol) socially Interpersonal Safety Answer Date Record ed Family or friends hurt you Not on file 05/02 Family or friends insult you Not on file Family or friends threaten you Not on file 0 05/02/2023 Family or friends scream or curse at you Not on file 05/02/2023 Housing Stability Answer Date Recorded Living situation today Not on file Living situation problems Not on file 2023 Food Insecurity Answer Date Recorded Food run out past 12 months Not on file 04/14 Food did not last past 12 months Not on file 05/02/2023 Employment Answer Date Recorded Help finding and keeping a job Not on file 0 05/02/2023 Family and Community Support Answer Jourdan e Recorded Help with Day to Day Activities Not on file 05/02/2023 Feeling Lonely or Isolated Not on file 05/02 Educational Attainment Answer Date [place] r[place] Speak language other than [place] at home Not on file 05/02/2023 Want help with school or training Not on file 05/02/2023 Depression Answer Date Recorded PHQ-2 Risk Not on file 05/02/2023 Disabilities Answer Date Recorded Difficulty concentrating Not on file 024 Difficulty doing errands alone Not on file 0 05/02/2023 Substance Use Answer Date Recorded Used prescription meds for non-medical reasons N ot on file 05/02/2023 Used illegal drugs past 12 months Not on file 05/02/2023 Sex and Gender Information Value Date Recorded Sex Assigned at Not on file Legal Sex Male 1:31 PM CDT Gender Identity Not on file Sexual Orientation Not on file Last Filed Vital Signs Vital Sign Reading Time Taken Comments Blood Pressure 94/65 08/20/2022 2:22 PM EDT Pulse 80 08/20/2022 2:22 PM EDT Temperature 36.3 C (97.4 F) 08/20/2022 1:14 PM EDT Respiratory Rate 16 08/20/2022 2:22 PM EDT Oxygen Saturation 92% 08/20/2022 2:22 PM EDT Inhaled Oxygen Concentration - - Weight 108 kg (238 lb) 08/19/2022 2:00 PM EDT Height 175.3 cm (5' 9 ) 08/06/2022 10:11 AM EDT Body Mass Index 35.15 08/06/2022 10:11 AM EDT Plan of Treatment Health Maintenance Due Date Last Done Comments CT Colonography 1960 Colonoscopy 1960 Colorectal Cancer Screening 1960 Diabetic Kidney Health Evaluation (KED) 1960 FOBT/FIT 1960 Fit-DNA (Cologuard) 1960 Sigmoidoscopy 1960 Diabetic Eye Exam 1970 Diabetic foot exam 1970 Depression Screening (12+) 1972 HIV Screening 09/27/1975 Hepatitis C Screening 1978 DTAP/TDAP/TD VACCINES (1 - Tdap) 09/27/1979 Pneumococcal 50+ years (1 of 2 - PCV) 09/27/1979 Lipid Panel 09/27/1995 Shingles Vaccine (Zoster) (1 of 2) 2010 Hemoglobin A1C 02/05/2023 08/06/2022 Tobacco Cessation Counseling and Screening (12+) 08/21/2023 08/20/2022 COVID-19 VACCINE (3 - season) 2023, 08/02/2020 Influenza Vaccine (Season Ended) 2024 Respiratory Syncytial Virus (RSV) Adult or (1 - 1-dose 75+ series) 09/27/2035 Medical Devices Implanted Type Area Sort Supervisor Device Identifier Shelf Expiration Date Model / Serial / Lot [place] Sut Healix Peek 3 [id number] - [id number] Implanted:Qty : 1 on 08/20/2022 by Kelechi Acharya MD at [facility] IMPLANTS Right: Shoulder DEPUY MITEK [id number] 02/10/2025 [id number] / / [id number] [place] [employer]al[employer] Peek 3 [id number] - [id number] Implanted:Qty : 1 on 08/20/2022 by Kelechi Acharya MD at [facility] IMPLANTS Right: Shoulder DEPUY MITEK [id number] 02/10/2025 [id number] / / [id number] [place] [employer]alix Advnce W/Ndl [id number] - [id number] Implanted:Qty : 1 on 08/20/2022 by Kelechi Acharya MD at [facility] IMPLANTS Right: Shoulder DEPUY MITEK 10/10/2024 [id number] / / [id number] Procedures Procedure Name Priority Date/Time Associated Diagnosis Comments HEMOGLOBIN A1C Routine 08/06/2022 10:16 AM EDT Preop examination from Last 3 Months or Most Recently Relevant to Health Maintenance Results * Hemoglobin A1c (08/06/2022 10:16 AM EDT) Hemoglobin A1C 6.3 4.2 - 6.3 % 08/06/2022 12:52 PM EDT [facility] Comment: Hemoglobin A1C levels are related to mean glucose during the preceding 2-3 months. Less than 7% demonstrates glycemic control in diabetic patients. Hemoglobin AlC % Suggested Diagnosis > or = 6.5 Diabetic 5.7 - 6.4 Prediabetic <5.7 Non-diabetic eAVG Glucose 134.11 mg/dL 08/06/2022 12:52 PM EDT [facility] Blood Venipuncture / Unknown 08/06/2022 10:16 AM EDT 08/06/2022 11:52 AM EDT us Kelechi Acharya MD LAB BLOOD ORDERABLES Final Resul t [facility] [address] [phone] from Last 3 Months or Most Recently Relevant to Health Maintenance Insurance Advance Directives For more information, please contact: [phone] * Full Code (Latest Code Status on File) Date Activated Date Inactivated Comments 08/20/2022 12:31 PM 08/20/2022 3:54 PM * Full Code Date Activated Date Inactivated Comments 08/20/2022 8:32 AM 08/20/2022 12:31 PM Care Teams Office Administrative Assistant Relationship Specialty Start Date End Date Igor Khalil MD [address] [place] [address] PCP - General General Internal Medicine 07/31/22
--- OUTSIDE RECORDS SUMMARY | 2024-09-29 09:59 | XMS_ITS | Referral Summary ---
Author Organization [employer] Address [address] [place] [address] Care Team Providers Care Gallery Intern Name Role Phone Igor Khalil MD Primary Care Provider [phone] Allergies No known active allergies Medications amLODIPine [...] Date [place] r[place] Speak language other than Bahamian at home Not on file 05/02/2023 Want [...] 08/06/2022 10:11 AM EDT Plan of Treatment Not on file Medical Devices Implanted Type Area Information Services Consultant Device Identifier Shelf Expiration Date Model / Serial / Lot [place] S[employer] Healix Peek 3 [id number] - [id number] Implanted:Qty : 1 on 08/20/2022 by Kelechi Acharya MD at [facility] IMPLANTS Right: Shoulder DEPUY MITEK [id number] 02/10/2025 [id number] / / [id number] [place] [employer] Peek 3 [id number] - [id number] Implanted:Qty : 1 on 08/20/2022 by Kelechi Acharya MD at [facility] IMPLANTS Right: Shoulder DEPUY MITEK [id number] 02/10/2025 [id number] / / [id number] [place] S[employer]al[employer] Advnce W/Ndl [id number] - [id number] Implanted:Qty : 1 on 08/20/2022 by Kelechi Acharya MD at [facility] IMPLANTS Right: Shoulder DEPUY MITEK 10/10/2024 [id number] / / [id number] Procedures Procedure Name Priority Date/Time Associated Diagnosis Comments HEMOGLOBIN A1C Routine 08/06/2022 10:16 AM EDT Preop examination from Last 3 Months or Most Recently Relevant to Health Maintenance Results * Hemoglobin A1c (08/06/2022 10:16 AM EDT) Hemoglobin A1C 6.3 4.2 - 6.3 % 08/06/2022 12:52 PM EDT [facility] Comment: Hemoglobin A1C levels are related to mean glucose during the preceding 2-3 months. Less than 7% demonstrates glycemic control in diabetic patients. Hemoglobin AlC % Suggested Diagnosis > or = 6.5 Diabetic 5.7 - 6.4 Prediabetic <5.7 Non-diabetic eAVG Glucose 134.11 mg/dL 08/06/2022 12:52 PM EDT [facility] Blood Venipuncture / Unknown 08/06/2022 10:16 AM EDT 08/06/2022 11:52 AM EDT us Kelechi Acharya MD LAB BLOOD ORDERABLES Final Resul t [facility] [address] [place] [address], [facility] [phone] from Last 3 Months or Most Recently Relevant to Health Maintenance Insurance [employer] [facility] [place] Advance Directives For more information, please contact: [phone] * Full Code (Latest Code Status on File) Date Activated Date Inactivated Comments 08/20/2022 12:31 PM 08/20/2022 3:54 PM * Full Code Date Activated Date Inactivated Comments 08/20/2022 8:32 AM 08/20/2022 12:31 PM Care Teams Gallery Intern Relationship Specialty Start Date End Date Igor Khalil MD [address] [place] [address] PCP - General General Internal Medicine 07/31/22
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
== END 2024-09-28 23:59 | disposition home or self-care (01) ==
LOC: LAB.DROPOF 09-29 09:57
PROVIDERS: PCP Internal Medicine; Visit Provider Internal Medicine
DX: E78.5 Hyperlipidemia, unspecified (principal); I10 Essential (primary) hypertension; E11.42 Type 2 diabetes mellitus with diabetic polyneuropathy
CPT/HCPCS: 80053; 80061; 83036; 85025